=== PATIENT | female | born 1935 | race Caucasian/White ===

== ENCOUNTER 2017-05-11 16:02 | Inpatient (IN) | payer MEDICARE, BC ==
[2017-05-11] MEDS ORDERED: Haloperidol Lactate 5 mg/mL 1mL Vial IVP ONE (16:15)
[2017-05-11] MEDS ORDERED: Haloperidol Lactate 5 mg/mL 1mL Vial ONE (16:20)
--- NOTE | 2017-05-11 16:31 | ED Physician Chart ---
ED Chief Complaint/HPI - Patient Information Date Seen:: 05/11/17 Time Seen:: 16:15 Chief Complaint:: PSYCHOSIS History of Present Illness:: THIS IS AN 81 YO FEMALE SENT FROM THE NURSING SCHOOL FOR EVALUATION AND TREATMENT. SHE IS CHRONICALLY ILL WITH DEMENTIA, AGGRESSIVE AND CONFUSION. SHE ALSO HAS HYPERTENSION,GERD, NEUROPATHY. Allergies:: Allergies Allergy/AdvReac Type Severity Reaction Status Date / Time No Known Allergies Allergy Verified 05/11/17 16:07 Vitals:: Vital Signs - 8 hr 05/11/17 16:07 Temp 98.1 F HR 75 RR 16 BP 133/74 O2 Sat % 96 Historian:: Medical Records Review:: Nurse's Note Reviewed, Old Chart Reviewed, Transfer documents Reviewed ED Review of Systems - Review of Systems General/Constitutional: No fever, No chills, No weight loss, No weakness, No diaphoresis, No edema, No loss of appetite, Other (THIS PATIENT IS CONFUSED AND CANNOT GIVE A REVIEW A REVIEW OF SYSTEMS.) Skin: No skin lesions, No rash, No bruising Head: No headache, No light-headedness Eyes: No loss of vision, No pain, No diplopia ENT: No earache, No nasal drainage, No sore throat, No tinnitus Neck: No neck pain, No swelling, No thyromegaly, No stiffness, No mass noted Cardio Vascular: No chest pain, No palpitations, No PND, No orthopnea, No edema Pulmonary: No SOB, No cough, No sputum, No wheezing GI: No nausea, No vomiting, No diarrhea, No pain, No melena, No hematochezia, No constipation, No hematemesis G/U: No dysuria, No frequency, No hematuria Musculoskeletal: No bone or joint pain, No back pain, No muscle pain Endocrine: No polyuria, No polydipsia Psychiatric: No prior psych history, No depression, No anxiety, No suicidal ideation Hematopoietic: No bruising, No lymphadenopathy Allergic/Immuno: No urticaria, No angioedema Neurological: No syncope, No focal symptoms, No weakness, No paresthesia, No headache, No seizure, No dizziness, No confusion, No vertigo ED Past Medical History - Past Medical History Obtainable: Yes Past Medical History: HTN, DM, DVT/PE, PUD/GERD, ESRD, Arthritis, Dementia Family History: None Social History: Non Smoker, Alcohol, Illicit Drug Use, Care Facility Surgical History: None Psychiatricy History: Schizophrenia, Dementia Medication: Reviewed Family Medical History - Family Member Mother History Unknown: Yes Hx Family Congestive Heart Failure: No ED Physical Exam - Physical Examination General/Constitutional: Awake, Well-developed, well-nourished, Alert, No distress, GCS 15, Non-toxic appearing, Ambulatory Other Gen/Cons comments:: CONFUSED AND AGGRESSIVE Head: Atraumatic Eyes: Lids, conjuctiva normal, PERRL, EOMI Skin: Nl inspection, No rash, No skin lesions, No ecchymosis, Well hydrated, No lymphadenopathy ENMT: External ears, nose nl, Nasal exam nl, Lips, teeth, gums nl Neck: Nontender, Full ROM w/o pain, No JVD, No nuchal rigidity, No bruit, No mass, No stridor Respiratory: Nl effort/Exclusion, Clear to Auscultation, No Wheeze/Rhonchi/Rales Cardio Vascular: RRR, No murmur, gallop, rubs, NL S1 S2 GI: No tenderness/rebounding/guarding, No organomegaly, No hernia, Normal BS's, Nondistended, No mass/bruits, No McBurney tenderness : No CVA tenderness Extremities: No tenderness or effusion, Full ROM, normal strength in all extremities, No edema, Normal digits & nails Neuro/Psych: DTR's symmetric, Normal sensory exam, Normal motor strength, Normal gait, No focal deficits Other Neuro/Psych comments:: CONFUSED AND AGGRESSIVE Misc: Normal back, No paraspinal tenderness ED Labs/Radiology/EKG Results - Radiology Results Results: CHEST X-RAY= NAD - EKG Interpretations EKG Time:: 16:24 Rate & Rhythm: SINUS [place]: RIGHT AXIS ED Assessment - Assessment General Assessment: PSYCHOSIS ED Septic Shock - . Is Septic Shock (SBP<90, OR Lactate>4 mmol\L) present?: No - <6hrs of presentation: Vital Signs: Vital Signs - 8 hr 05/11/17 16:07 Temp 98.1 F HR 75 RR 16 BP 133/74 O2 Sat % 96 ED Reassessment (Disposition) - Reassessment Reassessment Condition:: Improved - Diagnosis Diagnosis:: PSYCHOSIS ANEMIA - Patient Disposition Discharge/Transfer:: Acute Care w/in this hosp Admitting Medical Physician:: Gregorio Starks Admitting Psych Physician:: Berta Pollock Condition at Disposition:: Improved ED Discharge Plan - Patient Disposition Admit/Discharge/Transfer: Acute Care w/in this hosp Condition at Disposition: Improved Instructions: Psychosis
[2017-05-11 16:34] LABS: HEMOGLOBIN 11.7 gm/dL (12-16); MEAN CORPUSCULAR HEMOGLOBIN 31.2 pg (27.0-31.0); MEAN CORPUSCULAR HGB CONC 34.3 pg (28.0-36.0); MEAN PLATELET VOLUME 7.8 fl; PLATELET COUNT 178 Th/cmm (150-400); RED BLOOD COUNT 3.74 Mil/cmm (3.80-5.20); RED CELL DISTRIBUTION WIDTH 13.9 % (11.5-20.0); WHITE BLOOD COUNT 8.2 Th/cmm (4.8-10.8)
[2017-05-11 16:46] LABS: INR 0.93 (0.5-1.4); PROTHROMBIN TIME (TEST) 9.7 SECONDS (9.5-11.5)
[2017-05-11 16:50] LABS: ALB/GLOB RATIO 1.2 (1.0-1.8); ALKALINE PHOSPHATASE 72 U/L (34-104); ANION GAP 13.5 (7.0-16.0); BILIRUBIN,TOTAL 0.5 mg/dL (0.3-1.0); BUN - UREA NITROGEN 28 mg/dL (7-25); BUN/CREATININE RATIO 25.5; CALCIUM SERUM 9.9 mg/dL (8.6-10.3); CARBON DIOXIDE 22.9 mEq/L (21.0-31.0); CHLORIDE 106 mEq/L (98-107); CREATININE - SERUM 1.1 mg/dL (0.6-1.2); GLUCOSE 102 mg/dL (70-105); POTASSIUM SERUM 4.4 mEq/L (3.5-5.1); SGOT 21 U/L (13-39); SGPT/ALT 13 U/L (7-52); SODIUM SERUM 138 mEq/L (136-145)
[2017-05-11 16:51] LABS: CHOLESTEROL 216 mg/dL (<200); TRIGLYCERIDES 85 mg/dL (<150)
[2017-05-11 17:02] LABS: BASOPHIL 1 % (0-3); NEUTROPHILS 47 % (40-80); PLATELET ESTIMATE ADEQUATE (NORMAL); TOTAL CELLS COUNTED 100
[2017-05-11 21:28] VITALS: BP 136/74
[2017-05-11] MEDS ORDERED: Magnesium Hydroxide (MOM) 30 mL UDC PO PRN (21:30)
--- NOTE | 2017-05-12 10:14 | Diagnostic Imaging Report ---
Portable chest x-ray Time: 1631 History: Shortness of breath Allowing for portable technique the heart size is normal. No focal pulmonary parenchymal processes. No hilar or mediastinal abnormalities. Impression: No acute abnormalities.
--- NOTE | 2017-05-12 10:30 | Psychosocial Evaluation ---
DATE OF SERVICE: 05/12/2017 JUSTIFICATION FOR HOSPITALIZATION: The patient is here because of aggressive behaviors, confusion. CHIEF COMPLAINT: Aggression. HISTORY OF PRESENT ILLNESS: An 81-year-old female noted to be demented, confused, aggressive, impulsive, unpredictable, unable to be cared for at the facility. On pizw-ai-shed, the patient is sleeping, refusing to answer any questions, difficult to arouse, but she is arousable. PAST PSYCHIATRIC HISTORY: Dementia. FAMILY HISTORY: Unknown. SOCIAL HISTORY: The patient is coming from a prison, I am not able to elicit any further information as the patient is not talking to me. DRUG HISTORY: Nonsmoker, no alcohol, no illicit drug use. MEDICATIONS: Noted. MENTAL STATUS EXAMINATION: Stated age, little eye contact, confused, disoriented. Unclear SI or HI, unclear psychotic symptoms, impulsive, unpredictable, poor insight, poor judgment, poor impulse control. PROVISIONAL DIAGNOSES: Dementia with behavioral disturbances; psychosis, unspecified; anxiety, unspecified. MEDICAL: As noted. Please see full H and P. ESTIMATED LENGTH OF STAY: 5-7 days. ASSESSMENT: The patient requiring inpatient hospitalization, combative, confused, unable to be cared for at a lower level of care. PLAN: We will adjust medications. TREATMENT PLAN: Includes group as well as milieu therapy. CONDITIONS FOR DISCHARGE: Improved mood, improved affect, better control of any combative symptoms. JOB# [id number]
[2017-05-12] MEDS ORDERED: Non-Formulary Item 1 EA (Rivaroxaban [Xarelto] 20 MG) PO SCH (11:15)
[2017-05-12] MEDS ORDERED: AMLODIPINE BESYLATE 2.5 MG PO SCH (11:15)
--- NOTE | 2017-05-12 13:06 | History & Physical ---
ADMIT DATE: 05/11/2017 CHIEF COMPLAINT: Agitation. HISTORY OF PRESENT ILLNESS: This is an 81-year-old female with past medical history significant for dementia, presents after being agitated at the custodial. The patient was brought to the Emergency Room and admitted for further psychiatric evaluation to Geropsych Unit. The patient is seen in a chair. She is awake and alert, confused and confabulating, poor historian. Denies any medical complaints. PAST MEDICAL HISTORY: The patient has history of dementia, hypertension, gastroesophageal reflux disorder, neuropathy, and DVT. MEDICATIONS: See reconciliation. ALLERGIES: No known drug allergies. SOCIAL HISTORY: Denies tobacco, alcohol or illicit drug use. FAMILY HISTORY: Noncontributory. REVIEW OF SYSTEMS: IMMUNOLOGIC: No recurrent infection. CARDIOVASCULAR: The patient has hypertension. No known heart disease. GASTROINTESTINAL: No nausea, vomiting or diarrhea. ENDOCRINE: No diabetes or thyroid disorder. NEUROLOGIC: No seizure or stroke. HEMATOLOGIC: No bleeding or clotting disorder. The patient has history of DVT for which she takes anticoagulation. PHYSICAL EXAMINATION: GENERAL: The patient is awake and alert, in no acute distress. VITAL SIGNS: Temperature 97.1, pulse 60, respirations 18, blood pressure 130/66. HEENT: Pupils are equally and round. Anicteric sclerae. NECK: Supple, no JVD, mass or bruit. LUNGS: Clear to auscultation. HEART: S1, S2 regular rate and rhythm. ABDOMEN: Soft and nontender, positive bowel sounds. EXTREMITIES: No clubbing, cyanosis or edema. BACK: The patient has some ecchymosis on the antecubital area of right arm and hand possibly from a venipuncture. NEUROLOGIC: The patient moves all extremities equally, able to stand and ambulate. LABORATORY DATA: WBC is 8.2, hemoglobin is 11.7. Chemistry was unremarkable except for BUN of 28. IMPRESSION: 1. Dementia. 2. Hypertension. 3. Gastroesophageal reflux disorder. 4. Deep vein thrombosis. 5. Peripheral neuropathy. PLAN: Admit to the Geropsych Unit. The patient is to continue her usual medications and will be monitored while in the facility. The patient is medically cleared to participate in activities. JOB# [id number]
[2017-05-13] MEDS ORDERED: Non-Formulary Item 1 EA (Saccharomyces Boulardii [Florastor] 250 MG) PO SCH (09:00)
--- NOTE | 2017-05-13 19:03 | Progress Notes ---
DATE: 05/13/2017 SUBJECTIVE: The patient seen, chart reviewed, discussed with staff. The patient is currently in the hospital with aggressive behaviors, confusion. On face to face, the patient is confused, making odd statements, stating that she is "looking for the captain." States that she is coming from another facility, is asking nonsensical questions, making nonsensical statements, wandering behaviors, calm at this time, no side effects noted. ASSESSMENT: The patient remains symptomatic, confused, wandering, impulsive, unpredictable. She is compliant with treatment, however. PLAN: We will continue to monitor, continue Aricept at current dose. JOB# [id number]
--- NOTE | 2017-05-13 19:52 | General Progress Note ---
Subjective - Review of Systems Service Date: 05/13/17 Subjective: resting comfortably no distress Objective - Results Result Diagrams: 05/11/17 16:25 05/11/17 16:25 Recent Labs: Laboratory Last Values WBC 8.2 Th/cmm (4.8-10.8) 05/11/17 16:25 RBC 3.74 Mil/cmm (3.80-5.20) L 05/11/17 16:25 Hgb 11.7 gm/dL (12-16) L 05/11/17 16:25 Hct 34.0 % (41.0-60) L 05/11/17 16:25 MCV 91.0 fl (81-100) 05/11/17 16:25 MCH 31.2 pg (27.0-31.0) H 05/11/17 16:25 MCHC Differential 34.3 pg (28.0-36.0) 05/11/17 16:25 RDW 13.9 % (11.5-20.0) 05/11/17 16:25 Plt Count 178 Th/cmm (150-400) 05/11/17 16:25 MPV 7.8 fl 05/11/17 16:25 Neutrophils (Manual) 47 % (40-80) 05/11/17 16:25 Lymphocytes 41 % (20-50) 05/11/17 16:25 Monocytes 11 % (2-10) H 05/11/17 16:25 Basophils 1 % (0-3) 05/11/17 16:25 Platelet Estimate ADEQUATE (NORMAL) 05/11/17 16:25 PT 9.7 SECONDS (9.5-11.5) 05/11/17 16:25 INR 0.93 (0.5-1.4) 05/11/17 16:25 PTT (Actin FS) 25.4 SECONDS (26.0-38.0) L 05/11/17 16:25 Sodium 138 mEq/L (136-145) 05/11/17 16:25 Potassium 4.4 mEq/L (3.5-5.1) 05/11/17 16:25 Chloride 106 mEq/L (98-107) 05/11/17 16:25 Carbon Dioxide 22.9 mEq/L (21.0-31.0) 05/11/17 16:25 Anion Gap 13.5 (7.0-16.0) 05/11/17 16:25 BUN 28 mg/dL (7-25) H 05/11/17 16:25 Creatinine 1.1 mg/dL (0.6-1.2) 05/11/17 16:25 Est GFR ( Amer) TNP 05/11/17 16:25 Est GFR (Non-Af Amer) TNP 05/11/17 16:25 BUN/Creatinine Ratio 25.5 05/11/17 16:25 Glucose 102 mg/dL (70-105) 05/11/17 16:25 Calcium 9.9 mg/dL (8.6-10.3) 05/11/17 16:25 Total Bilirubin 0.5 mg/dL (0.3-1.0) 05/11/17 16:25 AST 21 U/L (13-39) 05/11/17 16:25 ALT 13 U/L (7-52) 05/11/17 16:25 Alkaline Phosphatase 72 U/L (34-104) 05/11/17 16:25 Troponin I 0.02 ng/mL (0.01-0.05) 05/11/17 16:25 B-Natriuretic Peptide 68.8 pg/mL (5.0-100.0) 05/11/17 16:25 Total Protein 8.2 gm/dL (6.0-8.3) 05/11/17 16:25 Albumin 4.5 gm/dL (3.7-5.3) 05/11/17 16:25 Globulin 3.7 gm/dL 05/11/17 16:25 Albumin/Globulin Ratio 1.2 (1.0-1.8) 05/11/17 16:25 Triglycerides 85 mg/dL (<150) 05/11/17 16:25 Cholesterol 216 mg/dL (<200) H 05/11/17 16:25 LDL Cholesterol Direct 139 mg/dL (75-193) 05/11/17 16:25 HDL Cholesterol 71 mg/dL (23-92) 05/11/17 16:25 TSH 2.96 uIU/ml (0.34-5.60) 05/11/17 16:25 RPR NONREACTIVE (NONREACTIVE) 05/11/17 16:25 - Physical Exam Vitals and I&O: Vital Signs Temp 97.7 F 05/13/17 16:21 Pulse 59 05/13/17 16:21 Resp 20 05/13/17 16:21 BP 105/50 05/13/17 16:21 Pulse Ox 96 05/13/17 16:21 Intake & Output 05/13/17 05/13/17 05/14/17 06:59 18:59 06:59 Intake Total 650 Balance 650 Intake: Oral 650 Other: # Voids 4 # Bowel Movements 3 Active Medications: Current Medications Acetaminophen (Tylenol) 650 mg PO Q6H PRN PRN Reason: Mild Pain/Headache/T above 101 Stop: 07/10/17 21:29 Last Admin: 05/13/17 15:22 Dose: 650 mg Amlodipine Besylate (Norvasc) 2.5 mg PO DAILY MAYCO Stop: 07/12/17 08:59 Last Admin: 05/13/17 09:17 Dose: 2.5 mg Donepezil HCl (Aricept) 5 mg PO HS MAYCO Stop: 07/11/17 20:59 Last Admin: 05/12/17 20:53 Dose: 5 mg Gabapentin (Neurontin) 100 mg PO HS MAYCO Stop: 07/11/17 20:59 Last Admin: 05/12/17 20:53 Dose: 100 mg Lorazepam (Ativan) 1 mg PO Q6H PRN; Protocol PRN Reason: Anxiety/Agitation Stop: 07/10/17 21:29 Magnesium Hydroxide (Milk Of Magnesia) 30 ml PO HS PRN PRN Reason: Constipation Stop: 07/10/17 21:29 Magnesium Oxide (Mag-Oxide) 400 mg PO BID MAYCO Stop: 07/11/17 16:59 Last Admin: 05/13/17 16:35 Dose: 400 mg Rivaroxaban (Xarelto) 20 mg PO DAILY MAYCO Stop: 07/12/17 08:59 Last Admin: 05/13/17 09:17 Dose: 20 mg Zolpidem Tartrate (Ambien) 5 mg PO HS PRN PRN Reason: Insomnia Stop: 07/10/17 21:29 Last Admin: 05/12/17 23:41 Dose: 5 mg General: Alert, Oriented x3 HEENT: Atraumatic, PERRLA, EOMI Neck: Supple, JVD Cardiovascular: Regular rate, Normal S1, Normal S2 Lungs: Clear to auscultation Abdomen: Bowel sounds, Soft Neurological: Normal gait Psych/Mental Status: Mood NL Assessment/Plan - Assessment Assessment: schizophrenia dementia htn gerd - Plan Plan: cont current treatment
--- NOTE | 2017-05-14 09:05 | Progress Notes ---
DATE: 05/14/2017 SUBJECTIVE: Chart reviewed and the patient interviewed. Also discussed the patient's condition with the staff and reviewed records and labs. The patient continued to be pleasantly confused and delusional. 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 The patient also is still easily agitated and easily irritable. She also is still restless and she still needs lots of redirections. During interview, the patient is pleasantly confused. She also still seems to be actively responding to stimuli. ASSESSMENT: The patient is still psychotic. TREATMENT PLAN: We will continue monitoring her behavior and her condition closely. Also, we will continue working on her confusion and her psychosis. Also, we will add Abilify in a dose of 5 mg everyday and we will continue to monitor her behavior and her condition closely. [facility]# [id number]
[2017-05-14 16:35] LABS: URINE BILIRUBIN NEGATIVE (NEGATIVE); URINE BLOOD TRACE (NEGATIVE); URINE GLUCOSE (UA) NEGATIVE (NEGATIVE); URINE KETONE NEGATIVE (NEGATIVE); URINE PROTEIN NEGATIVE (NEGATIVE); URINE UROBILINOGEN 0.2 E.U./dL (0.2 - 1.0)
[2017-05-14 16:39] LABS: URINE COLOR STRAW
[2017-05-14 16:40] LABS: URINE BACTERIA NONE SEEN /hpf (NONE SEEN); URINE EPITHELIAL CELLS NONE SEEN /lpf (FEW); URINE RBC 0-2 /hpf (0-5); URINE WBC 0-2 /hpf (0-5)
--- NOTE | 2017-05-14 19:43 | Internal Medicine Prog Note ---
Internal Medicine Subjective - Subjective Service Date: 05/14/17 Patient seen and examined:: with staff (SHE HAS PAIN AT BOTH UPPER AND LOWER EXTREMETES.) Patient is:: awake, robyn chair, talking Per staff patient has:: no adverse event Internal Medicine Objective - Results Result Diagrams: 05/11/17 16:25 05/11/17 16:25 Recent Labs: Laboratory Last Values WBC 8.2 Th/cmm (4.8-10.8) 05/11/17 16:25 RBC 3.74 Mil/cmm (3.80-5.20) L 05/11/17 16:25 Hgb 11.7 gm/dL (12-16) L 05/11/17 16:25 Hct 34.0 % (41.0-60) L 05/11/17 16:25 MCV 91.0 fl (81-100) 05/11/17 16:25 MCH 31.2 pg (27.0-31.0) H 05/11/17 16:25 MCHC Differential 34.3 pg (28.0-36.0) 05/11/17 16:25 RDW 13.9 % (11.5-20.0) 05/11/17 16:25 Plt Count 178 Th/cmm (150-400) 05/11/17 16:25 MPV 7.8 fl 05/11/17 16:25 Neutrophils (Manual) 47 % (40-80) 05/11/17 16:25 Lymphocytes 41 % (20-50) 05/11/17 16:25 Monocytes 11 % (2-10) H 05/11/17 16:25 Basophils 1 % (0-3) 05/11/17 16:25 Platelet Estimate ADEQUATE (NORMAL) 05/11/17 16:25 PT 9.7 SECONDS (9.5-11.5) 05/11/17 16:25 INR 0.93 (0.5-1.4) 05/11/17 16:25 PTT (Actin FS) 25.4 SECONDS (26.0-38.0) L 05/11/17 16:25 Sodium 138 mEq/L (136-145) 05/11/17 16:25 Potassium 4.4 mEq/L (3.5-5.1) 05/11/17 16:25 Chloride 106 mEq/L (98-107) 05/11/17 16:25 Carbon Dioxide 22.9 mEq/L (21.0-31.0) 05/11/17 16:25 Anion Gap 13.5 (7.0-16.0) 05/11/17 16:25 BUN 28 mg/dL (7-25) H 05/11/17 16:25 Creatinine 1.1 mg/dL (0.6-1.2) 05/11/17 16:25 Est GFR ( Amer) TNP 05/11/17 16:25 Est GFR (Non-Af Amer) TNP 05/11/17 16:25 BUN/Creatinine Ratio 25.5 05/11/17 16:25 Glucose 102 mg/dL (70-105) 05/11/17 16:25 Calcium 9.9 mg/dL (8.6-10.3) 05/11/17 16:25 Total Bilirubin 0.5 mg/dL (0.3-1.0) 05/11/17 16:25 AST 21 U/L (13-39) 05/11/17 16:25 ALT 13 U/L (7-52) 05/11/17 16:25 Alkaline Phosphatase 72 U/L (34-104) 05/11/17 16:25 Troponin I 0.02 ng/mL (0.01-0.05) 05/11/17 16:25 B-Natriuretic Peptide 68.8 pg/mL (5.0-100.0) 05/11/17 16:25 Total Protein 8.2 gm/dL (6.0-8.3) 05/11/17 16:25 Albumin 4.5 gm/dL (3.7-5.3) 05/11/17 16:25 Globulin 3.7 gm/dL 05/11/17 16:25 Albumin/Globulin Ratio 1.2 (1.0-1.8) 05/11/17 16:25 Triglycerides 85 mg/dL (<150) 05/11/17 16:25 Cholesterol 216 mg/dL (<200) H 05/11/17 16:25 LDL Cholesterol Direct 139 mg/dL (75-193) 05/11/17 16:25 HDL Cholesterol 71 mg/dL (23-92) 05/11/17 16:25 TSH 2.96 uIU/ml (0.34-5.60) 05/11/17 16:25 Urine Source CLEAN C 05/14/17 16:10 Urine Color STRAW 05/14/17 16:10 Urine Clarity CLEAR (CLEAR) 05/14/17 16:10 Urine pH 6.0 (4.6 - 8.0) 05/14/17 16:10 Ur Specific [place] <= 1.005 (1.005-1.030) 05/14/17 16:10 Urine Protein NEGATIVE mg/dL (NEGATIVE) 05/14/17 16:10 Urine Glucose (UA) NEGATIVE mg/dL (NEGATIVE) 05/14/17 16:10 Urine Ketones NEGATIVE mg/dL (NEGATIVE) 05/14/17 16:10 Urine Blood TRACE (NEGATIVE) 05/14/17 16:10 Urine Nitrate NEGATIVE (NEGATIVE) 05/14/17 16:10 Urine Bilirubin NEGATIVE (NEGATIVE) 05/14/17 16:10 Urine Urobilinogen 0.2 E.U./dL (0.2 - 1.0) 05/14/17 16:10 Ur Leukocyte Esterase NEGATIVE (NEGATIVE) 05/14/17 16:10 Urine RBC 0-2 /hpf (0-5) 05/14/17 16:10 Urine WBC 0-2 /hpf (0-5) 05/14/17 16:10 Ur Epithelial Cells NONE SEEN /lpf (FEW) 05/14/17 16:10 Urine Bacteria NONE SEEN /hpf (NONE SEEN) 05/14/17 16:10 RPR NONREACTIVE (NONREACTIVE) 05/11/17 16:25 - Physical Exam Vitals and I&O: Vital Signs Temp 98.1 F 05/14/17 15:34 Pulse 73 05/14/17 15:34 Resp 20 05/14/17 15:34 BP 130/70 05/14/17 15:34 Pulse Ox 98 05/14/17 15:34 Intake & Output 05/14/17 05/14/17 05/15/17 06:59 18:59 06:59 Intake Total 360 600 Balance 360 600 Intake: Oral 360 600 Other: # Voids 3 6 # Bowel Movements 0 2 Active Medications: Current Medications Acetaminophen (Tylenol) 650 mg PO Q6H PRN PRN Reason: Mild Pain/Headache/T above 101 Stop: 07/10/17 21:29 Last Admin: 05/13/17 15:22 Dose: 650 mg Amlodipine Besylate (Norvasc) 2.5 mg PO DAILY MAYCO Stop: 07/12/17 08:59 Last Admin: 05/14/17 08:53 Dose: Not Given Aripiprazole (Abilify) 5 mg PO DAILY MAYCO PRN Reason: Protocol Stop: 07/13/17 10:29 Last Admin: 05/14/17 17:34 Dose: Not Given Donepezil HCl (Aricept) 5 mg PO HS MAYCO Stop: 07/11/17 20:59 Last Admin: 05/13/17 20:53 Dose: 5 mg Gabapentin (Neurontin) 100 mg PO HS MAYCO Stop: 07/11/17 20:59 Last Admin: 05/13/17 20:53 Dose: 100 mg Lorazepam (Ativan) 1 mg PO Q6H PRN; Protocol PRN Reason: Anxiety/Agitation Stop: 07/10/17 21:29 Magnesium Hydroxide (Milk Of Magnesia) 30 ml PO HS PRN PRN Reason: Constipation Stop: 07/10/17 21:29 Magnesium Oxide (Mag-Oxide) 400 mg PO BID MAYCO Stop: 07/11/17 16:59 Last Admin: 05/14/17 17:34 Dose: 400 mg Rivaroxaban (Xarelto) 20 mg PO DAILY MAYCO Stop: 07/12/17 08:59 Last Admin: 05/14/17 08:53 Dose: 20 mg Zolpidem Tartrate (Ambien) 5 mg PO HS PRN PRN Reason: Insomnia Stop: 07/10/17 21:29 Last Admin: 05/13/17 23:33 Dose: 5 mg General: demented HEENT: NC/AT, PERRLA, EOMI, anicteric sclerae, throat clear Neck: Supple, No JVD, No thyromegaly, +2 carotid pulse wo bruit, No LAD Lungs: CTAB Cardiovascular: RRR, Normal S1, Normal S2, without murmur Abdomen: soft, non-tender, tender, thin Extremities: clear Neurological: no change Internal Medicine Assmt/Plan - Assessment Assessment: 1.HTN 2.DVT OF LOWER EXTRE. 3.PERIPHERAL NEUROPATHY OF LOWER EXTRE. 4.DEMENTIA. - Plan Plan: CONTINUE ON CURRENT MEDICATION AND DIET.
--- NOTE | 2017-05-15 12:12 | Progress Notes ---
DATE: 05/15/2017 SUBJECTIVE: Chart reviewed and the patient interviewed. Also discussed the patient's condition with the staff and reviewed records and labs. The patient is complaining of inability to control her urine and she has been incontinent of urine. The patient also seems to be slightly calmer and cooperative, but she has guilty feeling about "my friend in an earthquake." She is slightly delusional and paranoid, talking about a friend that last week in an earthquake in [place], and she said that she was in a swimming pool swimming, and the patient kept rambling about that issue. She also still slightly seems to be preoccupied at times. She also is restless at times and hypertalkative and slightly manicky. Otherwise, the patient is compliant with taking her medications. ASSESSMENT: The patient is still psychotic. TREATMENT PLAN: We will continue monitoring her behavior and her condition closely. Also, continue to work on her delusions and her paranoia. 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 JOB# [id number]
--- NOTE | 2017-05-15 19:32 | Internal Medicine Prog Note ---
Internal Medicine Subjective - Subjective Service Date: 05/15/17 Patient seen and examined:: without staff Patient is:: awake, robyn chair, talking Per staff patient has:: no adverse event Internal Medicine Objective - Results Result Diagrams: 05/11/17 16:25 05/11/17 16:25 Recent Labs: Laboratory Last Values WBC 8.2 Th/cmm (4.8-10.8) 05/11/17 16:25 RBC 3.74 Mil/cmm (3.80-5.20) L 05/11/17 16:25 Hgb 11.7 gm/dL (12-16) L 05/11/17 16:25 Hct 34.0 % (41.0-60) L 05/11/17 16:25 MCV 91.0 fl (81-100) 05/11/17 16:25 MCH 31.2 pg (27.0-31.0) H 05/11/17 16:25 MCHC Differential 34.3 pg (28.0-36.0) 05/11/17 16:25 RDW 13.9 % (11.5-20.0) 05/11/17 16:25 Plt Count 178 Th/cmm (150-400) 05/11/17 16:25 MPV 7.8 fl 05/11/17 16:25 Neutrophils (Manual) 47 % (40-80) 05/11/17 16:25 Lymphocytes 41 % (20-50) 05/11/17 16:25 Monocytes 11 % (2-10) H 05/11/17 16:25 Basophils 1 % (0-3) 05/11/17 16:25 Platelet Estimate ADEQUATE (NORMAL) 05/11/17 16:25 PT 9.7 SECONDS (9.5-11.5) 05/11/17 16:25 INR 0.93 (0.5-1.4) 05/11/17 16:25 PTT (Actin FS) 25.4 SECONDS (26.0-38.0) L 05/11/17 16:25 Sodium 138 mEq/L (136-145) 05/11/17 16:25 Potassium 4.4 mEq/L (3.5-5.1) 05/11/17 16:25 Chloride 106 mEq/L (98-107) 05/11/17 16:25 Carbon Dioxide 22.9 mEq/L (21.0-31.0) 05/11/17 16:25 Anion Gap 13.5 (7.0-16.0) 05/11/17 16:25 BUN 28 mg/dL (7-25) H 05/11/17 16:25 Creatinine 1.1 mg/dL (0.6-1.2) 05/11/17 16:25 Est GFR ( Amer) TNP 05/11/17 16:25 Est GFR (Non-Af Amer) TNP 05/11/17 16:25 BUN/Creatinine Ratio 25.5 05/11/17 16:25 Glucose 102 mg/dL (70-105) 05/11/17 16:25 Calcium 9.9 mg/dL (8.6-10.3) 05/11/17 16:25 Total Bilirubin 0.5 mg/dL (0.3-1.0) 05/11/17 16:25 AST 21 U/L (13-39) 05/11/17 16:25 ALT 13 U/L (7-52) 05/11/17 16:25 Alkaline Phosphatase 72 U/L (34-104) 05/11/17 16:25 Troponin I 0.02 ng/mL (0.01-0.05) 05/11/17 16:25 B-Natriuretic Peptide 68.8 pg/mL (5.0-100.0) 05/11/17 16:25 Total Protein 8.2 gm/dL (6.0-8.3) 05/11/17 16:25 Albumin 4.5 gm/dL (3.7-5.3) 05/11/17 16:25 Globulin 3.7 gm/dL 05/11/17 16:25 Albumin/Globulin Ratio 1.2 (1.0-1.8) 05/11/17 16:25 Triglycerides 85 mg/dL (<150) 05/11/17 16:25 Cholesterol 216 mg/dL (<200) H 05/11/17 16:25 LDL Cholesterol Direct 139 mg/dL (75-193) 05/11/17 16:25 HDL Cholesterol 71 mg/dL (23-92) 05/11/17 16:25 TSH 2.96 uIU/ml (0.34-5.60) 05/11/17 16:25 Urine Source CLEAN C 05/14/17 16:10 Urine Color STRAW 05/14/17 16:10 Urine Clarity CLEAR (CLEAR) 05/14/17 16:10 Urine pH 6.0 (4.6 - 8.0) 05/14/17 16:10 Ur Specific [place] <= 1.005 (1.005-1.030) 05/14/17 16:10 Urine Protein NEGATIVE mg/dL (NEGATIVE) 05/14/17 16:10 Urine Glucose (UA) NEGATIVE mg/dL (NEGATIVE) 05/14/17 16:10 Urine Ketones NEGATIVE mg/dL (NEGATIVE) 05/14/17 16:10 Urine Blood TRACE (NEGATIVE) 05/14/17 16:10 Urine Nitrate NEGATIVE (NEGATIVE) 05/14/17 16:10 Urine Bilirubin NEGATIVE (NEGATIVE) 05/14/17 16:10 Urine Urobilinogen 0.2 E.U./dL (0.2 - 1.0) 05/14/17 16:10 Ur Leukocyte Esterase NEGATIVE (NEGATIVE) 05/14/17 16:10 Urine RBC 0-2 /hpf (0-5) 05/14/17 16:10 Urine WBC 0-2 /hpf (0-5) 05/14/17 16:10 Ur Epithelial Cells NONE SEEN /lpf (FEW) 05/14/17 16:10 Urine Bacteria NONE SEEN /hpf (NONE SEEN) 05/14/17 16:10 RPR NONREACTIVE (NONREACTIVE) 05/11/17 16:25 - Physical Exam Vitals and I&O: Vital Signs Temp 97.2 F 05/15/17 14:00 Pulse 68 05/15/17 14:00 Resp 20 05/15/17 14:00 BP 132/66 05/15/17 14:00 Pulse Ox 95 05/15/17 14:00 Intake & Output 05/15/17 05/15/17 05/16/17 06:59 18:59 06:59 Intake Total 900 Balance 900 Weight (lbs) 73.845 kg Intake: Oral 900 Other: # Voids 4 # Bowel Movements 1 Active Medications: Current Medications Acetaminophen (Tylenol) 650 mg PO Q6H PRN PRN Reason: Mild Pain/Headache/T above 101 Stop: 07/10/17 21:29 Last Admin: 05/13/17 15:22 Dose: 650 mg Amlodipine Besylate (Norvasc) 2.5 mg PO DAILY [facility] Stop: 07/12/17 08:59 Last Admin: 05/15/17 08:45 Dose: 2.5 mg Aripiprazole (Abilify) 5 mg PO DAILY [facility] PRN Reason: Protocol Stop: 07/13/17 10:29 Last Admin: 05/15/17 08:49 Dose: 5 mg Donepezil HCl (Aricept) 5 mg PO HS [facility] Stop: 07/11/17 20:59 Last Admin: 05/14/17 22:05 Dose: 5 mg Gabapentin (Neurontin) 100 mg PO HS [facility] Stop: 07/11/17 20:59 Last Admin: 05/14/17 22:05 Dose: 100 mg Lactobacillus Rhamnosus (Culturelle) 1 each PO DAILY COUNT [facility]CLUDES [facility] Stop: 07/12/17 08:59 Lorazepam (Ativan) 1 mg PO Q6H PRN; Protocol PRN Reason: Anxiety/Agitation Stop: 07/10/17 21:29 Magnesium Hydroxide (Milk Of Magnesia) 30 ml PO HS PRN PRN Reason: Constipation Stop: 07/10/17 21:29 Magnesium Oxide (Mag-Oxide) 400 mg PO BID [facility] Stop: 07/11/17 16:59 Last Admin: 05/15/17 16:59 Dose: 400 mg Rivaroxaban (Xarelto) 20 mg PO DAILY COUNT [facility]CLUD[facility] Stop: 07/12/17 08:59 Last Admin: 05/15/17 08:45 Dose: 20 mg Zolpidem Tartrate (Ambien) 5 mg PO HS PRN PRN Reason: Insomnia Stop: 07/10/17 21:29 Last Admin: 05/14/17 22:46 Dose: 5 mg General: demented HEENT: NC/AT, PERRLA, EOMI, anicteric sclerae, throat clear Neck: Supple, No JVD, No thyromegaly, +2 carotid pulse wo bruit, No LAD Lungs: CTAB Cardiovascular: RRR, Normal S1, Normal S2, without murmur Abdomen: soft, non-tender, tender, thin Extremities: clear Neurological: no change Internal Medicine Assmt/Plan - Assessment Assessment: 1.HTN 2.DVT OF LOWER EXTRE. 3.PERIPHERAL NEUROPATHY OF LOWER EXTRE. 4.DEMENTIA. - Plan Plan: CONTINUE ON CURRENT MEDICATION AND DIET. Nutritional Asmnt/Malnutr-PDOC - Dietary Evaluation Malnutrition Findings (Please click <Entered> for more info): Nutritional Asmnt/Malnutrition Start: 05/15/17 17: 50 Text: Status: Complete Freq: Document 05/15/17 17:50 MYRANDA (Rec: 05/15/17 18:08 [email or web address]) Nutritional Asmnt/Malnutrition Patient General Information Nutritional Screening Moderate Risk Screening Diagnosis Dementia with behavioral disturbances, anxiety Pertinent Medical Hx/Surgical Hx Dementia, HTN, GERD, neuropathy, DVT Subjective Information 81 year old female from SNF. No known allergies on EMR, pt report allergies to shellfish. Pt was very talkaive, goes off topic, slight forgetfulness noted, however able to provide basic nutrition hx. Pt confirmed with specification writer allergies to shellfish only, hx of allergic reaction rushed to hospital and receievd a shot. Pt stated no allergies to anything else , likes salmon, tuna... etc. FNS notified and food preferences noted. No severe muscle fat wasting. No difficulties chewing/ swallowing. Pt report UBW 190lb many years ago. Pt report "wonderful appetite" and food has been "excellent." Pt also appeared health concious, requested for additional Mrs. Baires packets and was able to explain purpose/benefit. Avg PO intake 100% of meals since adm, meeting nutritinoal needs. Current Diet Order/ Nutrition Support Regular, SANJAY Pertinent Medications LASHAY Beltran, Mag-Oxide Pertinent Labs Reviewed. Nutritional Hx/Data Height 1.68 m Height (Calculated Centimeters) 167.6 Current Weight (lbs) 73.845 kg Weight (Calculated Kilograms) 73.8 Weight (Calculated Grams) 61737.8 [place] Body Weight 130 Recent Weight Change No Weight Status Overweight GI Symptoms Food Allergies Yes Cultural/Ethnic/Buddhism Belief Allergies to shellfish. Pt with preference for extra Mrs. Baires packets, all other fish, tea, hot cocoa, apple juice. Dislikes coffee, mashed potato with gravy. Usual diet at home [place]: regular, SANJAY Skin Integrity/Comment: Perico Herbert. Bruises, discolor extremities. Current %PO Good (75-100%) Estimated Nutritional Goals BEE in Kcals: Using Current wt Calories/Kcals/Kg CBW 162.8lb/74kg Kcals Calculated 1850-2220kcal (25-30kcal/kg) Protein: Using Current wt Protein Calculated 74g (1g/kg) Fluid: ml 1850-2220ml (1ml/kcal) Nutritional Problem 1. Problem Problem No nutritional problem at this time. Intervention/Recommendation Comments 1. Continue with current diet order. Avg PO intake is adequate. Pt's food preferences noted, FNS notified. 2. Pt report food allergies to shellfish only, FNS notified, documented under diet order. Expected Outcomes/Goals Expected Outcomes/Goals 1. PO intake continue to meet at least 75% of estimated nutritinoal needs.
[2017-05-16] MEDS: Lactobacillus Rhamnosus 10 Billion CFU Capsule PO SCH (08:28)
--- NOTE | 2017-05-16 20:27 | Internal Medicine Prog Note ---
Internal Medicine Subjective - Subjective Service Date: 05/16/17 Patient seen and examined:: without staff Patient is:: awake, robyn chair, talking Per staff patient has:: no adverse event Internal Medicine Objective - Results Result Diagrams: 05/11/17 16:25 05/11/17 16:25 Recent Labs: Laboratory Last Values WBC 8.2 Th/cmm (4.8-10.8) 05/11/17 16:25 RBC 3.74 Mil/cmm (3.80-5.20) L 05/11/17 16:25 Hgb 11.7 gm/dL (12-16) L 05/11/17 16:25 Hct 34.0 % (41.0-60) L 05/11/17 16:25 MCV 91.0 fl (81-100) 05/11/17 16:25 MCH 31.2 pg (27.0-31.0) H 05/11/17 16:25 MCHC Differential 34.3 pg (28.0-36.0) 05/11/17 16:25 RDW 13.9 % (11.5-20.0) 05/11/17 16:25 Plt Count 178 Th/cmm (150-400) 05/11/17 16:25 MPV 7.8 fl 05/11/17 16:25 Neutrophils (Manual) 47 % (40-80) 05/11/17 16:25 Lymphocytes 41 % (20-50) 05/11/17 16:25 Monocytes 11 % (2-10) H 05/11/17 16:25 Basophils 1 % (0-3) 05/11/17 16:25 Platelet Estimate ADEQUATE (NORMAL) 05/11/17 16:25 PT 9.7 SECONDS (9.5-11.5) 05/11/17 16:25 INR 0.93 (0.5-1.4) 05/11/17 16:25 PTT (Actin FS) 25.4 SECONDS (26.0-38.0) L 05/11/17 16:25 Sodium 138 mEq/L (136-145) 05/11/17 16:25 Potassium 4.4 mEq/L (3.5-5.1) 05/11/17 16:25 Chloride 106 mEq/L (98-107) 05/11/17 16:25 Carbon Dioxide 22.9 mEq/L (21.0-31.0) 05/11/17 16:25 Anion Gap 13.5 (7.0-16.0) 05/11/17 16:25 BUN 28 mg/dL (7-25) H 05/11/17 16:25 Creatinine 1.1 mg/dL (0.6-1.2) 05/11/17 16:25 Est GFR ( Amer) TNP 05/11/17 16:25 Est GFR (Non-Af Amer) TNP 05/11/17 16:25 BUN/Creatinine Ratio 25.5 05/11/17 16:25 Glucose 102 mg/dL (70-105) 05/11/17 16:25 Calcium 9.9 mg/dL (8.6-10.3) 05/11/17 16:25 Total Bilirubin 0.5 mg/dL (0.3-1.0) 05/11/17 16:25 AST 21 U/L (13-39) 05/11/17 16:25 ALT 13 U/L (7-52) 05/11/17 16:25 Alkaline Phosphatase 72 U/L (34-104) 05/11/17 16:25 Troponin I 0.02 ng/mL (0.01-0.05) 05/11/17 16:25 B-Natriuretic Peptide 68.8 pg/mL (5.0-100.0) 05/11/17 16:25 Total Protein 8.2 gm/dL (6.0-8.3) 05/11/17 16:25 Albumin 4.5 gm/dL (3.7-5.3) 05/11/17 16:25 Globulin 3.7 gm/dL 05/11/17 16:25 Albumin/Globulin Ratio 1.2 (1.0-1.8) 05/11/17 16:25 Triglycerides 85 mg/dL (<150) 05/11/17 16:25 Cholesterol 216 mg/dL (<200) H 05/11/17 16:25 LDL Cholesterol Direct 139 mg/dL (75-193) 05/11/17 16:25 HDL Cholesterol 71 mg/dL (23-92) 05/11/17 16:25 TSH 2.96 uIU/ml (0.34-5.60) 05/11/17 16:25 Urine Source CLEAN C 05/14/17 16:10 Urine Color STRAW 05/14/17 16:10 Urine Clarity CLEAR (CLEAR) 05/14/17 16:10 Urine pH 6.0 (4.6 - 8.0) 05/14/17 16:10 Ur Specific [place] <= 1.005 (1.005-1.030) 05/14/17 16:10 Urine Protein NEGATIVE mg/dL (NEGATIVE) 05/14/17 16:10 Urine Glucose (UA) NEGATIVE mg/dL (NEGATIVE) 05/14/17 16:10 Urine Ketones NEGATIVE mg/dL (NEGATIVE) 05/14/17 16:10 Urine Blood TRACE (NEGATIVE) 05/14/17 16:10 Urine Nitrate NEGATIVE (NEGATIVE) 05/14/17 16:10 Urine Bilirubin NEGATIVE (NEGATIVE) 05/14/17 16:10 Urine Urobilinogen 0.2 E.U./dL (0.2 - 1.0) 05/14/17 16:10 Ur Leukocyte Esterase NEGATIVE (NEGATIVE) 05/14/17 16:10 Urine RBC 0-2 /hpf (0-5) 05/14/17 16:10 Urine WBC 0-2 /hpf (0-5) 05/14/17 16:10 Ur Epithelial Cells NONE SEEN /lpf (FEW) 05/14/17 16:10 Urine Bacteria NONE SEEN /hpf (NONE SEEN) 05/14/17 16:10 RPR NONREACTIVE (NONREACTIVE) 05/11/17 16:25 - Physical Exam Vitals and I&O: Vital Signs Temp 97.6 F 05/16/17 20:00 Pulse 65 05/16/17 20:00 Resp 20 05/16/17 20:00 BP 134/74 05/16/17 20:00 Pulse Ox 97 05/16/17 20:00 Intake & Output 05/16/17 05/16/17 05/17/17 06:59 18:59 06:59 Intake Total 420 1200 Balance 420 1200 Intake: Oral 420 1200 Other: # Voids 3 # Bowel Movements 0 1 Active Medications: Current Medications Acetaminophen (Tylenol) 650 mg PO Q6H PRN PRN Reason: Mild Pain/Headache/T above 101 Stop: 07/10/17 21:29 Last Admin: 05/13/17 15:22 Dose: 650 mg Amlodipine Besylate (Norvasc) 2.5 mg PO DAILY [facility] Stop: 07/12/17 08:59 Last Admin: 05/16/17 08:28 Dose: 2.5 mg Aripiprazole (Abilify) 10 mg PO DAILY [facility] PRN Reason: Protocol Stop: 07/15/17 05:49 Donepezil HCl (Aricept) 5 mg PO HS [facility] Stop: 07/11/17 20:59 Last Admin: 05/15/17 20:12 Dose: 5 mg Gabapentin (Neurontin) 100 mg PO HS [facility] Stop: 07/11/17 20:59 Last Admin: 05/15/17 20:12 Dose: 100 mg Lactobacillus Rhamnosus (Culturelle) 1 each PO DAILY [facility] Stop: 07/12/17 08:59 Last Admin: 05/16/17 08:28 Dose: 1 each Lorazepam (Ativan) 1 mg PO Q6H PRN; Protocol PRN Reason: Anxiety/Agitation Stop: 07/10/17 21:29 Magnesium Hydroxide (Milk Of Magnesia) 30 ml PO HS PRN PRN Reason: Constipation Stop: 07/10/17 21:29 Magnesium Oxide (Mag-Oxide) 400 mg PO BID [facility] Stop: 07/11/17 16:59 Last Admin: 05/16/17 16:36 Dose: 400 mg Rivaroxaban (Xarelto) 20 mg PO DAILY [facility] Stop: 07/12/17 08:59 Last Admin: 05/16/17 08:28 Dose: 20 mg Zolpidem Tartrate (Ambien) 5 mg PO HS PRN PRN Reason: Insomnia Stop: 07/10/17 21:29 Last Admin: 05/15/17 20:12 Dose: 5 mg General: demented HEENT: NC/AT, PERRLA, EOMI, anicteric sclerae, throat clear Neck: Supple, No JVD, No thyromegaly, +2 carotid pulse wo bruit, No LAD Lungs: CTAB Cardiovascular: RRR, Normal S1, Normal S2, without murmur Abdomen: soft, non-tender, tender, thin Extremities: clear Neurological: no change Internal Medicine Assmt/Plan - Assessment Assessment: 1.HTN 2.DVT OF LOWER EXTRE. 3.PERIPHERAL NEUROPATHY OF LOWER EXTRE. 4.DEMENTIA. - Plan Plan: CONTINUE ON CURRENT MEDICATION AND DIET. Nutritional Asmnt/Malnutr-PDOC - Dietary Evaluation Malnutrition Findings (Please click <Entered> for more info): Nutritional Asmnt/Malnutrition Start: 05/15/17 17: 50 Text: Status: Complete Freq: Document 05/15/17 17:50 MYRANDA (Rec: 05/15/17 18:08 GSARMANI [email or web address]) Nutritional Asmnt/Malnutrition Patient General Information Nutritional Screening Moderate Risk Screening Diagnosis Dementia with behavioral disturbances, anxiety Pertinent Medical Hx/Surgical Hx Dementia, HTN, GERD, neuropathy, DVT Subjective Information 81 year old female from SNF. No known allergies on EMR, pt report allergies to shellfish. Pt was very talkaive, goes off topic, slight forgetfulness noted, however able to provide basic nutrition hx. Pt confirmed with typewriters functional tester allergies to shellfish only, hx of allergic reaction rushed to hospital and receievd a shot. Pt stated no allergies to anything else , likes salmon, tuna... etc. FNS notified and food preferences noted. No severe muscle fat wasting. No difficulties chewing/ swallowing. Pt report UBW 190lb many years ago. Pt report "wonderful appetite" and food has been "excellent." Pt also appeared health concious, requested for additional Mrs. Baires packets and was able to explain purpose/benefit. Avg PO intake 100% of meals since adm, meeting nutritinoal needs. Current Diet Order/ Nutrition Support Regular, SANJAY Pertinent Medications LASHAY Beltran, Mag-Oxide Pertinent Labs Reviewed. Nutritional Hx/Data Height 1.68 m Height (Calculated Centimeters) 167.6 Current Weight (lbs) 73.845 kg Weight (Calculated Kilograms) 73.8 Weight (Calculated Grams) 43771.8 [place] Body Weight 130 Recent Weight Change No Weight Status Overweight GI Symptoms Food Allergies Yes Cultural/Ethnic/Holiness Belief Allergies to shellfish. Pt with preference for extra Mrs. Baires packets, all other fish, tea, hot cocoa, apple juice. Dislikes coffee, mashed potato with gravy. Usual diet at home [place]: regular, SANJAY Skin Integrity/Comment: Perico Herbert. Bruises, discolor extremities. Current %PO Good (75-100%) Estimated Nutritional Goals BEE in Kcals: Using Current wt Calories/Kcals/Kg CBW 162.8lb/74kg Kcals Calculated 1850-2220kcal (25-30kcal/kg) Protein: Using Current wt Protein Calculated 74g (1g/kg) Fluid: ml 1850-2220ml (1ml/kcal) Nutritional Problem 1. Problem Problem No nutritional problem at this time. Intervention/Recommendation Comments 1. Continue with current diet order. Avg PO intake is adequate. Pt's food preferences noted, FNS notified. 2. Pt report food allergies to shellfish only, FNS notified, documented under diet order. Expected Outcomes/Goals Expected Outcomes/Goals 1. PO intake continue to meet at least 75% of estimated nutritinoal needs.
--- NOTE | 2017-05-17 02:14 | Progress Notes ---
DATE: 05/16/2017 SUBJECTIVE: Chart reviewed and the patient interviewed. Also, discussed the patient's condition with the staff and reviewed records and labs. The patient continued to be manicky and she is still delusional. The patient is also still having racing thoughts and hyperverbal. 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 She also is pacing up and down in the unit. Otherwise, the patient is cooperative and compliant with taking her medications with no side effects of medications. ASSESSMENT: The patient is still manicky and delusional. TREATMENT PLAN: We will continue to monitor her behavior and her condition closely. Also, continue Abilify and continue to follow up closely. JOB# [id number]
[2017-05-17] MEDS: Lactobacillus Rhamnosus 10 Billion CFU Capsule PO SCH (08:10)
--- NOTE | 2017-05-17 16:52 | Internal Medicine Prog Note ---
Internal Medicine Subjective - Subjective Service Date: 05/17/17 Patient seen and examined:: without staff Patient is:: awake, robyn chair, talking Per staff patient has:: no adverse event Internal Medicine Objective - Results Result Diagrams: 05/11/17 16:25 05/11/17 16:25 Recent Labs: Laboratory Last Values WBC 8.2 Th/cmm (4.8-10.8) 05/11/17 16:25 RBC 3.74 Mil/cmm (3.80-5.20) L 05/11/17 16:25 Hgb 11.7 gm/dL (12-16) L 05/11/17 16:25 Hct 34.0 % (41.0-60) L 05/11/17 16:25 MCV 91.0 fl (81-100) 05/11/17 16:25 MCH 31.2 pg (27.0-31.0) H 05/11/17 16:25 MCHC Differential 34.3 pg (28.0-36.0) 05/11/17 16:25 RDW 13.9 % (11.5-20.0) 05/11/17 16:25 Plt Count 178 Th/cmm (150-400) 05/11/17 16:25 MPV 7.8 fl 05/11/17 16:25 Neutrophils (Manual) 47 % (40-80) 05/11/17 16:25 Lymphocytes 41 % (20-50) 05/11/17 16:25 Monocytes 11 % (2-10) H 05/11/17 16:25 Basophils 1 % (0-3) 05/11/17 16:25 Platelet Estimate ADEQUATE (NORMAL) 05/11/17 16:25 PT 9.7 SECONDS (9.5-11.5) 05/11/17 16:25 INR 0.93 (0.5-1.4) 05/11/17 16:25 PTT (Actin FS) 25.4 SECONDS (26.0-38.0) L 05/11/17 16:25 Sodium 138 mEq/L (136-145) 05/11/17 16:25 Potassium 4.4 mEq/L (3.5-5.1) 05/11/17 16:25 Chloride 106 mEq/L (98-107) 05/11/17 16:25 Carbon Dioxide 22.9 mEq/L (21.0-31.0) 05/11/17 16:25 Anion Gap 13.5 (7.0-16.0) 05/11/17 16:25 BUN 28 mg/dL (7-25) H 05/11/17 16:25 Creatinine 1.1 mg/dL (0.6-1.2) 05/11/17 16:25 Est GFR ( Amer) TNP 05/11/17 16:25 Est GFR (Non-Af Amer) TNP 05/11/17 16:25 BUN/Creatinine Ratio 25.5 05/11/17 16:25 Glucose 102 mg/dL (70-105) 05/11/17 16:25 Calcium 9.9 mg/dL (8.6-10.3) 05/11/17 16:25 Total Bilirubin 0.5 mg/dL (0.3-1.0) 05/11/17 16:25 AST 21 U/L (13-39) 05/11/17 16:25 ALT 13 U/L (7-52) 05/11/17 16:25 Alkaline Phosphatase 72 U/L (34-104) 05/11/17 16:25 Troponin I 0.02 ng/mL (0.01-0.05) 05/11/17 16:25 B-Natriuretic Peptide 68.8 pg/mL (5.0-100.0) 05/11/17 16:25 Total Protein 8.2 gm/dL (6.0-8.3) 05/11/17 16:25 Albumin 4.5 gm/dL (3.7-5.3) 05/11/17 16:25 Globulin 3.7 gm/dL 05/11/17 16:25 Albumin/Globulin Ratio 1.2 (1.0-1.8) 05/11/17 16:25 Triglycerides 85 mg/dL (<150) 05/11/17 16:25 Cholesterol 216 mg/dL (<200) H 05/11/17 16:25 LDL Cholesterol Direct 139 mg/dL (75-193) 05/11/17 16:25 HDL Cholesterol 71 mg/dL (23-92) 05/11/17 16:25 TSH 2.96 uIU/ml (0.34-5.60) 05/11/17 16:25 Urine Source CLEAN C 05/14/17 16:10 Urine Color STRAW 05/14/17 16:10 Urine Clarity CLEAR (CLEAR) 05/14/17 16:10 Urine pH 6.0 (4.6 - 8.0) 05/14/17 16:10 Ur Specific [place] <= 1.005 (1.005-1.030) 05/14/17 16:10 Urine Protein NEGATIVE mg/dL (NEGATIVE) 05/14/17 16:10 Urine Glucose (UA) NEGATIVE mg/dL (NEGATIVE) 05/14/17 16:10 Urine Ketones NEGATIVE mg/dL (NEGATIVE) 05/14/17 16:10 Urine Blood TRACE (NEGATIVE) 05/14/17 16:10 Urine Nitrate NEGATIVE (NEGATIVE) 05/14/17 16:10 Urine Bilirubin NEGATIVE (NEGATIVE) 05/14/17 16:10 Urine Urobilinogen 0.2 E.U./dL (0.2 - 1.0) 05/14/17 16:10 Ur Leukocyte Esterase NEGATIVE (NEGATIVE) 05/14/17 16:10 Urine RBC 0-2 /hpf (0-5) 05/14/17 16:10 Urine WBC 0-2 /hpf (0-5) 05/14/17 16:10 Ur Epithelial Cells NONE SEEN /lpf (FEW) 05/14/17 16:10 Urine Bacteria NONE SEEN /hpf (NONE SEEN) 05/14/17 16:10 RPR NONREACTIVE (NONREACTIVE) 05/11/17 16:25 - Physical Exam Vitals and I&O: Vital Signs Temp 98.3 F 05/17/17 14:00 Pulse 80 05/17/17 14:00 Resp 20 05/17/17 14:00 BP 135/72 05/17/17 14:00 Pulse Ox 97 05/17/17 14:00 Intake & Output 05/16/17 05/17/17 05/17/17 18:59 06:59 18:59 Intake Total 1200 120 Balance 1200 120 Intake: Oral 1200 120 Other: # Voids 3 # Bowel Movements 1 Active Medications: Current Medications Acetaminophen (Tylenol) 650 mg PO Q6H PRN PRN Reason: Mild Pain/Headache/T above 101 Stop: 07/10/17 21:29 Last Admin: 05/13/17 15:22 Dose: 650 mg Amlodipine Besylate (Norvasc) 2.5 mg PO DAILY [facility] Stop: 07/12/17 08:59 Last Admin: 05/17/17 08:11 Dose: 2.5 mg Aripiprazole (Abilify) 10 mg PO DAILY [facility] PRN Reason: Protocol Stop: 07/15/17 05:49 Last Admin: 05/17/17 08:10 Dose: 10 mg Donepezil HCl (Aricept) 5 mg PO HS [facility] Stop: 07/11/17 20:59 Last Admin: 05/16/17 21:42 Dose: 5 mg Gabapentin (Neurontin) 100 mg PO HS [facility] Stop: 07/11/17 20:59 Last Admin: 05/16/17 21:42 Dose: 100 mg Lactobacillus Rhamnosus (Culturelle) 1 each PO DAILY [facility] Stop: 07/12/17 08:59 Last Admin: 05/17/17 08:10 Dose: 1 each Lorazepam (Ativan) 1 mg PO Q6H PRN; Protocol PRN Reason: Anxiety/Agitation Stop: 07/10/17 21:29 Magnesium Hydroxide (Milk Of Magnesia) 30 ml PO HS PRN PRN Reason: Constipation Stop: 07/10/17 21:29 Magnesium Oxide (Mag-Oxide) 400 mg PO BID [facility] Stop: 07/11/17 16:59 Last Admin: 05/17/17 16:25 Dose: 400 mg Rivaroxaban (Xarelto) 20 mg PO DAILY [facility] Stop: 07/12/17 08:59 Last Admin: 05/17/17 08:10 Dose: 20 mg Zolpidem Tartrate (Ambien) 5 mg PO HS PRN PRN Reason: Insomnia Stop: 07/10/17 21:29 Last Admin: 05/16/17 21:42 Dose: 5 mg General: demented HEENT: NC/AT, PERRLA, EOMI, anicteric sclerae, throat clear Neck: Supple, No JVD, No thyromegaly, +2 carotid pulse wo bruit, No LAD Lungs: CTAB Cardiovascular: RRR, Normal S1, Normal S2, without murmur Abdomen: soft, non-tender, tender, thin Extremities: clear Neurological: no change Internal Medicine Assmt/Plan - Assessment Assessment: 1.HTN 2.DVT OF LOWER EXTRE. 3.PERIPHERAL NEUROPATHY OF LOWER EXTRE. 4.DEMENTIA. - Plan Plan: CONTINUE ON CURRENT MEDICATION AND DIET. Nutritional Asmnt/Malnutr-PDOC - Dietary Evaluation Malnutrition Findings (Please click <Entered> for more info): Nutritional Asmnt/Malnutrition Start: 05/15/17 17: 50 Text: Status: Complete Freq: Document 05/15/17 17:50 MYRANDA (Rec: 05/15/17 18:08 [email or web address]) Nutritional Asmnt/Malnutrition Patient General Information Nutritional Screening Moderate Risk Screening Diagnosis Dementia with behavioral disturbances, anxiety Pertinent Medical Hx/Surgical Hx Dementia, HTN, GERD, neuropathy, DVT Subjective Information 81 year old female from SNF. No known allergies on EMR, pt report allergies to shellfish. Pt was very talkaive, goes off topic, slight forgetfulness noted, however able to provide basic nutrition hx. Pt confirmed with production underwriter allergies to shellfish only, hx of allergic reaction rushed to hospital and receievd a shot. Pt stated no allergies to anything else , likes salmon, tuna... etc. FNS notified and food preferences noted. No severe muscle fat wasting. No difficulties chewing/ swallowing. Pt report UBW 190lb many years ago. Pt report "wonderful appetite" and food has been "excellent." Pt also appeared health concious, requested for additional . Dequan packets and was able to explain purpose/benefit. Avg PO intake 100% of meals since adm, meeting nutritinoal needs. Current Diet Order/ Nutrition Support Regular, SANJAY Pertinent Medications Kassylle, MOM, Mag-Oxide Pertinent Labs Reviewed. Nutritional Hx/Data Height 1.68 m Height (Calculated Centimeters) 167.6 Current Weight (lbs) 73.845 kg Weight (Calculated Kilograms) 73.8 Weight (Calculated Grams) 79463.8 [place] Body Weight 130 Recent Weight Change No Weight Status Overweight GI Symptoms Food Allergies Yes Cultural/Ethnic/Christian Belief Allergies to shellfish. Pt with preference for extra Mrs. Dash packets, all other fish, tea, hot cocoa, apple juice. Dislikes coffee, mashed potato with gravy. Usual diet at home [place]: regular, SANJAY Skin Integrity/Comment: Perico Herbert. Bruises, discolor extremities. Current %PO Good (75-100%) Estimated Nutritional Goals BEE in Kcals: Using Current wt Calories/Kcals/Kg CBW 162.8lb/74kg Kcals Calculated 1850-2220kcal (25-30kcal/kg) Protein: Using Current wt Protein Calculated 74g (1g/kg) Fluid: ml 1850-2220ml (1ml/kcal) Nutritional Problem 1. Problem Problem No nutritional problem at this time. Intervention/Recommendation Comments 1. Continue with current diet order. Avg PO intake is adequate. Pt's food preferences noted, FNS notified. 2. Pt report food allergies to shellfish only, FNS notified, documented under diet order. Expected Outcomes/Goals Expected Outcomes/Goals 1. PO intake continue to meet at least 75% of estimated nutritinoal needs.
--- NOTE | 2017-05-17 21:22 | Progress Notes ---
DATE: 05/17/2017 SUBJECTIVE: Chart reviewed and the patient interviewed. Also, discussed the patient's condition with the staff and reviewed records and labs. The patient is still in a manic state and she is still hypertalkative and hyperactive. The patient also still has delusions and continues to talk about different positions that she had in the [employer] and [employer]. She also still needs lots of redirections. Otherwise, the patient is compliant with taking her medications, no side effects of medications. The patient is still pacing up and down the unit in a manic state and needs lots of redirections. ASSESSMENT: The patient is still manicky and hyper. TREATMENT PLAN: We will continue monitoring her behavior and her condition closely. Also, continue Abilify 10 mg every day and Aricept 5 mg at bedtime and we will continue to work on her agitation and irritability and we will continue to follow up . JOB# [id number]
[2017-05-18] MEDS: Lactobacillus Rhamnosus 10 Billion CFU Capsule PO SCH (10:55)
--- NOTE | 2017-05-18 21:26 | Internal Medicine Prog Note ---
Internal Medicine Subjective - Subjective Service Date: 05/18/17 Patient seen and examined:: without staff Patient is:: awake, robyn chair, talking Per staff patient has:: no adverse event Internal Medicine Objective - Results Result Diagrams: 05/11/17 16:25 05/11/17 16:25 Recent Labs: Laboratory Last Values WBC 8.2 Th/cmm (4.8-10.8) 05/11/17 16:25 RBC 3.74 Mil/cmm (3.80-5.20) L 05/11/17 16:25 Hgb 11.7 gm/dL (12-16) L 05/11/17 16:25 Hct 34.0 % (41.0-60) L 05/11/17 16:25 MCV 91.0 fl (81-100) 05/11/17 16:25 MCH 31.2 pg (27.0-31.0) H 05/11/17 16:25 MCHC Differential 34.3 pg (28.0-36.0) 05/11/17 16:25 RDW 13.9 % (11.5-20.0) 05/11/17 16:25 Plt Count 178 Th/cmm (150-400) 05/11/17 16:25 MPV 7.8 fl 05/11/17 16:25 Neutrophils (Manual) 47 % (40-80) 05/11/17 16:25 Lymphocytes 41 % (20-50) 05/11/17 16:25 Monocytes 11 % (2-10) H 05/11/17 16:25 Basophils 1 % (0-3) 05/11/17 16:25 Platelet Estimate ADEQUATE (NORMAL) 05/11/17 16:25 PT 9.7 SECONDS (9.5-11.5) 05/11/17 16:25 INR 0.93 (0.5-1.4) 05/11/17 16:25 PTT (Actin FS) 25.4 SECONDS (26.0-38.0) L 05/11/17 16:25 Sodium 138 mEq/L (136-145) 05/11/17 16:25 Potassium 4.4 mEq/L (3.5-5.1) 05/11/17 16:25 Chloride 106 mEq/L (98-107) 05/11/17 16:25 Carbon Dioxide 22.9 mEq/L (21.0-31.0) 05/11/17 16:25 Anion Gap 13.5 (7.0-16.0) 05/11/17 16:25 BUN 28 mg/dL (7-25) H 05/11/17 16:25 Creatinine 1.1 mg/dL (0.6-1.2) 05/11/17 16:25 Est GFR ( Amer) TNP 05/11/17 16:25 Est GFR (Non-Af Amer) TNP 05/11/17 16:25 BUN/Creatinine Ratio 25.5 05/11/17 16:25 Glucose 102 mg/dL (70-105) 05/11/17 16:25 Calcium 9.9 mg/dL (8.6-10.3) 05/11/17 16:25 Total Bilirubin 0.5 mg/dL (0.3-1.0) 05/11/17 16:25 AST 21 U/L (13-39) 05/11/17 16:25 ALT 13 U/L (7-52) 05/11/17 16:25 Alkaline Phosphatase 72 U/L (34-104) 05/11/17 16:25 Troponin I 0.02 ng/mL (0.01-0.05) 05/11/17 16:25 B-Natriuretic Peptide 68.8 pg/mL (5.0-100.0) 05/11/17 16:25 Total Protein 8.2 gm/dL (6.0-8.3) 05/11/17 16:25 Albumin 4.5 gm/dL (3.7-5.3) 05/11/17 16:25 Globulin 3.7 gm/dL 05/11/17 16:25 Albumin/Globulin Ratio 1.2 (1.0-1.8) 05/11/17 16:25 Triglycerides 85 mg/dL (<150) 05/11/17 16:25 Cholesterol 216 mg/dL (<200) H 05/11/17 16:25 LDL Cholesterol Direct 139 mg/dL (75-193) 05/11/17 16:25 HDL Cholesterol 71 mg/dL (23-92) 05/11/17 16:25 TSH 2.96 uIU/ml (0.34-5.60) 05/11/17 16:25 Urine Source CLEAN C 05/14/17 16:10 Urine Color STRAW 05/14/17 16:10 Urine Clarity CLEAR (CLEAR) 05/14/17 16:10 Urine pH 6.0 (4.6 - 8.0) 05/14/17 16:10 Ur Specific [place] <= 1.005 (1.005-1.030) 05/14/17 16:10 Urine Protein NEGATIVE mg/dL (NEGATIVE) 05/14/17 16:10 Urine Glucose (UA) NEGATIVE mg/dL (NEGATIVE) 05/14/17 16:10 Urine Ketones NEGATIVE mg/dL (NEGATIVE) 05/14/17 16:10 Urine Blood TRACE (NEGATIVE) 05/14/17 16:10 Urine Nitrate NEGATIVE (NEGATIVE) 05/14/17 16:10 Urine Bilirubin NEGATIVE (NEGATIVE) 05/14/17 16:10 Urine Urobilinogen 0.2 E.U./dL (0.2 - 1.0) 05/14/17 16:10 Ur Leukocyte Esterase NEGATIVE (NEGATIVE) 05/14/17 16:10 Urine RBC 0-2 /hpf (0-5) 05/14/17 16:10 Urine WBC 0-2 /hpf (0-5) 05/14/17 16:10 Ur Epithelial Cells NONE SEEN /lpf (FEW) 05/14/17 16:10 Urine Bacteria NONE SEEN /hpf (NONE SEEN) 05/14/17 16:10 RPR NONREACTIVE (NONREACTIVE) 05/11/17 16:25 - Physical Exam Vitals and I&O: Vital Signs Temp 97.1 F 05/18/17 20:00 Pulse 63 05/18/17 20:00 Resp 20 05/18/17 20:00 BP 141/56 05/18/17 20:00 Pulse Ox 95 05/18/17 20:00 Intake & Output 05/18/17 05/18/17 05/19/17 06:59 18:59 06:59 Intake Total 120 1000 Balance 120 1000 Intake: Oral 120 1000 Other: # Voids 3 4 # Bowel Movements 1 Active Medications: Current Medications Acetaminophen (Tylenol) 650 mg PO Q6H PRN PRN Reason: Mild Pain/Headache/T above 101 Stop: 07/10/17 21:29 Last Admin: 05/13/17 15:22 Dose: 650 mg Amlodipine Besylate (Norvasc) 2.5 mg PO DAILY [facility] Stop: 07/12/17 08:59 Last Admin: 05/18/17 10:53 Dose: 2.5 mg Aripiprazole (Abilify) 15 mg PO DAILY [facility] PRN Reason: Protocol Stop: 07/17/17 06:23 Last Admin: 05/18/17 10:54 Dose: 15 mg Donepezil HCl (Aricept) 5 mg PO HS [facility] Stop: 07/11/17 20:59 Last Admin: 05/18/17 20:34 Dose: 5 mg Gabapentin (Neurontin) 100 mg PO HS [facility] Stop: 07/11/17 20:59 Last Admin: 05/18/17 20:34 Dose: 100 mg Lactobacillus Rhamnosus (Culturelle) 1 each PO DAILY [facility] Stop: 07/12/17 08:59 Last Admin: 05/18/17 10:55 Dose: 1 each Lorazepam (Ativan) 1 mg PO Q6H PRN; Protocol PRN Reason: Anxiety/Agitation Stop: 07/10/17 21:29 Magnesium Hydroxide (Milk Of Magnesia) 30 ml PO HS PRN PRN Reason: Constipation Stop: 07/10/17 21:29 Magnesium Oxide (Mag-Oxide) 400 mg PO BID [facility] Stop: 07/11/17 16:59 Last Admin: 05/18/17 16:06 Dose: 400 mg Rivaroxaban (Xarelto) 20 mg PO DAILY [facility] Stop: 07/12/17 08:59 Last Admin: 05/18/17 10:54 Dose: 20 mg Zolpidem Tartrate (Ambien) 5 mg PO HS PRN PRN Reason: Insomnia Stop: 07/10/17 21:29 Last Admin: 05/17/17 20:36 Dose: 5 mg General: demented HEENT: NC/AT, PERRLA, EOMI, anicteric sclerae, throat clear Neck: Supple, No JVD, No thyromegaly, +2 carotid pulse wo bruit, No LAD Lungs: CTAB Cardiovascular: RRR, Normal S1, Normal S2, without murmur Abdomen: soft, non-tender, tender, thin Extremities: clear Neurological: no change Internal Medicine Assmt/Plan - Assessment Assessment: 1.HTN 2.DVT OF LOWER EXTRE. 3.PERIPHERAL NEUROPATHY OF LOWER EXTRE. 4.DEMENTIA. - Plan Plan: CONTINUE ON CURRENT MEDICATION AND DIET. Nutritional Asmnt/Malnutr-PDOC - Dietary Evaluation Malnutrition Findings (Please click <Entered> for more info): Nutritional Asmnt/Malnutrition Start: 05/15/17 17: 50 Text: Status: Complete Freq: Document 05/15/17 17:50 MYRANDA (Rec: 05/15/17 18:08 GSARMANI [email or web address]) Nutritional Asmnt/Malnutrition Patient General Information Nutritional Screening Moderate Risk Screening Diagnosis Dementia with behavioral disturbances, anxiety Pertinent Medical Hx/Surgical Hx Dementia, HTN, GERD, neuropathy, DVT Subjective Information 81 year old female from SNF. No known allergies on EMR, pt report allergies to shellfish. Pt was very talkaive, goes off topic, slight forgetfulness noted, however able to provide basic nutrition hx. Pt confirmed with technical publications writer allergies to shellfish only, hx of allergic reaction rushed to hospital and receievd a shot. Pt stated no allergies to anything else , likes salmon, tuna... etc. FNS notified and food preferences noted. No severe muscle fat wasting. No difficulties chewing/ swallowing. Pt report UBW 190lb many years ago. Pt report "wonderful appetite" and food has been "excellent." Pt also appeared health concious, requested for additional . Dequan packets and was able to explain purpose/benefit. Avg PO intake 100% of meals since adm, meeting nutritinoal needs. Current Diet Order/ Nutrition Support Regular, SANJAY Pertinent Medications Kassyl[place], MOM, Mag-Oxide Pertinent Labs Reviewed. Nutritional Hx/Data Height 1.68 m Height (Calculated Centimeters) 167.6 Current Weight (lbs) 73.845 kg Weight (Calculated Kilograms) 73.8 Weight (Calculated Grams) 68853.8 [place] Body Weight 130 Recent Weight Change No Weight Status Overweight GI Symptoms Food Allergies Yes Cultural/Ethnic/Faith Belief Allergies to shellfish. Pt with preference for extra Mrs. Dash packets, all other fish, tea, hot cocoa, apple juice. Dislikes coffee, mashed potato with gravy. Usual diet at home [place]: regular, SANJAY Skin Integrity/Comment: Perico Herbert. Bruises, discolor extremities. Current %PO Good (75-100%) Estimated Nutritional Goals BEE in Kcals: Using Current wt Calories/Kcals/Kg CBW 162.8lb/74kg Kcals Calculated 1850-2220kcal (25-30kcal/kg) Protein: Using Current wt Protein Calculated 74g (1g/kg) Fluid: ml 1850-2220ml (1ml/kcal) Nutritional Problem 1. Problem Problem No nutritional problem at this time. Intervention/Recommendation Comments 1. Continue with current diet order. Avg PO intake is adequate. Pt's food preferences noted, FNS notified. 2. Pt report food allergies to shellfish only, FNS notified, documented under diet order. Expected Outcomes/Goals Expected Outcomes/Goals 1. PO intake continue to meet at least 75% of estimated nutritinoal needs.
--- NOTE | 2017-05-18 21:40 | Progress Notes ---
DATE: 05/18/2017 SUBJECTIVE: Chart was reviewed and the patient interviewed. Also I have discussed the patient's condition with the staff and reviewed records and labs. Patient is still in angry and in irritable mood. Patient also is still easily agitated and she is still having severe mood swings and severe anxiety. Patient also is interacting minimally with peers and with others. She is singing while she is sleeping in her bed and she is unpredictable. The patient also is still delusional and continues to talk about her history of being ____. ASSESSMENT: Patient is still in ____ and in irritable mood. TREATMENT PLAN: We will continue monitoring her behavior and her condition closely. We will also continue to work on her poor impulse control. Also, we will increase Abilify to 15 mg every day and we will continue to follow up closely. [facility]# [id number]
[2017-05-19] MEDS: Lactobacillus Rhamnosus 10 Billion CFU Capsule PO SCH (09:44)
--- NOTE | 2017-05-19 14:42 | Internal Medicine Prog Note ---
Internal Medicine Subjective - Subjective Service Date: 05/19/17 Patient seen and examined:: without staff Patient is:: awake, robyn chair, talking Per staff patient has:: no adverse event Internal Medicine Objective - Results Result Diagrams: 05/11/17 16:25 05/11/17 16:25 Recent Labs: Laboratory Last Values WBC 8.2 Th/cmm (4.8-10.8) 05/11/17 16:25 RBC 3.74 Mil/cmm (3.80-5.20) L 05/11/17 16:25 Hgb 11.7 gm/dL (12-16) L 05/11/17 16:25 Hct 34.0 % (41.0-60) L 05/11/17 16:25 MCV 91.0 fl (81-100) 05/11/17 16:25 MCH 31.2 pg (27.0-31.0) H 05/11/17 16:25 MCHC Differential 34.3 pg (28.0-36.0) 05/11/17 16:25 RDW 13.9 % (11.5-20.0) 05/11/17 16:25 Plt Count 178 Th/cmm (150-400) 05/11/17 16:25 MPV 7.8 fl 05/11/17 16:25 Neutrophils (Manual) 47 % (40-80) 05/11/17 16:25 Lymphocytes 41 % (20-50) 05/11/17 16:25 Monocytes 11 % (2-10) H 05/11/17 16:25 Basophils 1 % (0-3) 05/11/17 16:25 Platelet Estimate ADEQUATE (NORMAL) 05/11/17 16:25 PT 9.7 SECONDS (9.5-11.5) 05/11/17 16:25 INR 0.93 (0.5-1.4) 05/11/17 16:25 PTT (Actin FS) 25.4 SECONDS (26.0-38.0) L 05/11/17 16:25 Sodium 138 mEq/L (136-145) 05/11/17 16:25 Potassium 4.4 mEq/L (3.5-5.1) 05/11/17 16:25 Chloride 106 mEq/L (98-107) 05/11/17 16:25 Carbon Dioxide 22.9 mEq/L (21.0-31.0) 05/11/17 16:25 Anion Gap 13.5 (7.0-16.0) 05/11/17 16:25 BUN 28 mg/dL (7-25) H 05/11/17 16:25 Creatinine 1.1 mg/dL (0.6-1.2) 05/11/17 16:25 Est GFR ( Amer) TNP 05/11/17 16:25 Est GFR (Non-Af Amer) TNP 05/11/17 16:25 BUN/Creatinine Ratio 25.5 05/11/17 16:25 Glucose 102 mg/dL (70-105) 05/11/17 16:25 Calcium 9.9 mg/dL (8.6-10.3) 05/11/17 16:25 Total Bilirubin 0.5 mg/dL (0.3-1.0) 05/11/17 16:25 AST 21 U/L (13-39) 05/11/17 16:25 ALT 13 U/L (7-52) 05/11/17 16:25 Alkaline Phosphatase 72 U/L (34-104) 05/11/17 16:25 Troponin I 0.02 ng/mL (0.01-0.05) 05/11/17 16:25 B-Natriuretic Peptide 68.8 pg/mL (5.0-100.0) 05/11/17 16:25 Total Protein 8.2 gm/dL (6.0-8.3) 05/11/17 16:25 Albumin 4.5 gm/dL (3.7-5.3) 05/11/17 16:25 Globulin 3.7 gm/dL 05/11/17 16:25 Albumin/Globulin Ratio 1.2 (1.0-1.8) 05/11/17 16:25 Triglycerides 85 mg/dL (<150) 05/11/17 16:25 Cholesterol 216 mg/dL (<200) H 05/11/17 16:25 LDL Cholesterol Direct 139 mg/dL (75-193) 05/11/17 16:25 HDL Cholesterol 71 mg/dL (23-92) 05/11/17 16:25 TSH 2.96 uIU/ml (0.34-5.60) 05/11/17 16:25 Urine Source CLEAN C 05/14/17 16:10 Urine Color STRAW 05/14/17 16:10 Urine Clarity CLEAR (CLEAR) 05/14/17 16:10 Urine pH 6.0 (4.6 - 8.0) 05/14/17 16:10 Ur Specific [place] <= 1.005 (1.005-1.030) 05/14/17 16:10 Urine Protein NEGATIVE mg/dL (NEGATIVE) 05/14/17 16:10 Urine Glucose (UA) NEGATIVE mg/dL (NEGATIVE) 05/14/17 16:10 Urine Ketones NEGATIVE mg/dL (NEGATIVE) 05/14/17 16:10 Urine Blood TRACE (NEGATIVE) 05/14/17 16:10 Urine Nitrate NEGATIVE (NEGATIVE) 05/14/17 16:10 Urine Bilirubin NEGATIVE (NEGATIVE) 05/14/17 16:10 Urine Urobilinogen 0.2 E.U./dL (0.2 - 1.0) 05/14/17 16:10 Ur Leukocyte Esterase NEGATIVE (NEGATIVE) 05/14/17 16:10 Urine RBC 0-2 /hpf (0-5) 05/14/17 16:10 Urine WBC 0-2 /hpf (0-5) 05/14/17 16:10 Ur Epithelial Cells NONE SEEN /lpf (FEW) 05/14/17 16:10 Urine Bacteria NONE SEEN /hpf (NONE SEEN) 05/14/17 16:10 RPR NONREACTIVE (NONREACTIVE) 05/11/17 16:25 - Physical Exam Vitals and I&O: Vital Signs Temp 97.7 F 05/19/17 07:12 Pulse 72 05/19/17 09:45 Resp 19 05/19/17 07:12 BP 134/70 05/19/17 09:45 Pulse Ox 97 05/19/17 07:12 Intake & Output 05/18/17 05/19/17 05/19/17 18:59 06:59 18:59 Intake Total 1000 1000 Balance 1000 1000 Intake: Oral 1000 1000 Other: # Voids 4 3 # Bowel Movements 1 Active Medications: Current Medications Acetaminophen (Tylenol) 650 mg PO Q6H PRN PRN Reason: Mild Pain/Headache/T above 101 Stop: 07/10/17 21:29 Last Admin: 05/13/17 15:22 Dose: 650 mg Amlodipine Besylate (Norvasc) 2.5 mg PO DAILY MAYCO Stop: 07/12/17 08:59 Last Admin: 05/19/17 09:45 Dose: 2.5 mg Aripiprazole (Abilify) 15 mg PO DAILY MAYCO PRN Reason: Protocol Stop: 07/17/17 06:23 Last Admin: 05/19/17 09:44 Dose: 15 mg Donepezil HCl (Aricept) 5 mg PO HS MAYCO Stop: 07/11/17 20:59 Last Admin: 05/18/17 20:34 Dose: 5 mg Gabapentin (Neurontin) 100 mg PO HS MAYCO Stop: 07/11/17 20:59 Last Admin: 05/18/17 20:34 Dose: 100 mg Lactobacillus Rhamnosus (Culturelle) 1 each PO DAILY MAYCO Stop: 07/12/17 08:59 Last Admin: 05/19/17 09:44 Dose: 1 each Lorazepam (Ativan) 1 mg PO Q6H PRN; Protocol PRN Reason: Anxiety/Agitation Stop: 07/10/17 21:29 Magnesium Hydroxide (Milk Of Magnesia) 30 ml PO HS PRN PRN Reason: Constipation Stop: 07/10/17 21:29 Magnesium Oxide (Mag-Oxide) 400 mg PO BID MAYCO Stop: 07/11/17 16:59 Last Admin: 05/19/17 09:44 Dose: 400 mg Rivaroxaban (Xarelto) 20 mg PO DAILY MAYCO Stop: 07/12/17 08:59 Last Admin: 05/19/17 09:44 Dose: 20 mg Zolpidem Tartrate (Ambien) 5 mg PO HS PRN PRN Reason: Insomnia Stop: 07/10/17 21:29 Last Admin: 05/17/17 20:36 Dose: 5 mg General: demented HEENT: NC/AT, PERRLA, EOMI, anicteric sclerae, throat clear Neck: Supple, No JVD, No thyromegaly, +2 carotid pulse wo bruit, No LAD Lungs: CTAB Cardiovascular: RRR, Normal S1, Normal S2, without murmur Abdomen: soft, non-tender, tender, thin Extremities: clear Neurological: no change Internal Medicine Assmt/Plan - Assessment Assessment: 1.HTN 2.DVT OF LOWER EXTRE. 3.PERIPHERAL NEUROPATHY OF LOWER EXTRE. 4.DEMENTIA. - Plan Plan: CONTINUE ON CURRENT MEDICATION AND DIET. Nutritional Asmnt/Malnutr-PDOC - Dietary Evaluation Malnutrition Findings (Please click <Entered> for more info): Nutritional Asmnt/Malnutrition Start: 05/15/17 17: 50 Text: Status: Complete Freq: Document 05/15/17 17:50 MYRANDA (Rec: 05/15/17 18:08 [email or web address] [email or web address]) Nutritional Asmnt/Malnutrition Patient General Information Nutritional Screening Moderate Risk Screening Diagnosis Dementia with behavioral disturbances, anxiety Pertinent Medical Hx/Surgical Hx Dementia, HTN, GERD, neuropathy, DVT Subjective Information 81 year old female from SNF. No known allergies on EMR, pt report allergies to shellfish. Pt was very talkaive, goes off topic, slight forgetfulness noted, however able to provide basic nutrition hx. Pt confirmed with senior medical writer allergies to shellfish only, hx of allergic reaction rushed to hospital and receievd a shot. Pt stated no allergies to anything else , likes salmon, tuna... etc. FNS notified and food preferences noted. No severe muscle fat wasting. No difficulties chewing/ swallowing. Pt report UBW 190lb many years ago. Pt report "wonderful appetite" and food has been "excellent." Pt also appeared health concious, requested for additional . Dequan packets and was able to explain purpose/benefit. Avg PO intake 100% of meals since adm, meeting nutritinoal needs. Current Diet Order/ Nutrition Support Regular, SANJAY Pertinent Medications Kassylle, MOM, Mag-Oxide Pertinent Labs Reviewed. Nutritional Hx/Data Height 1.68 m Height (Calculated Centimeters) 167.6 Current Weight (lbs) 73.845 kg Weight (Calculated Kilograms) 73.8 Weight (Calculated Grams) [address]64.8 [place] Body Weight 130 Recent Weight Change No Weight Status Overweight GI Symptoms Food Allergies Yes Cultural/Ethnic/Buddhist Belief Allergies to shellfish. Pt with preference for extra Mrs. Dash packets, all other fish, tea, hot cocoa, apple juice. Dislikes coffee, mashed potato with gravy. Usual diet at home [place]: regular, SANJAY Skin Integrity/Comment: Perico Herbert. Bruises, discolor extremities. Current %PO Good (75-100%) Estimated Nutritional Goals BEE in Kcals: Using Current wt Calories/Kcals/Kg CBW 162.8lb/74kg Kcals Calculated 1850-2220kcal (25-30kcal/kg) Protein: Using Current wt Protein Calculated 74g (1g/kg) Fluid: ml 1850-2220ml (1ml/kcal) Nutritional Problem 1. Problem Problem No nutritional problem at this time. Intervention/Recommendation Comments 1. Continue with current diet order. Avg PO intake is adequate. Pt's food preferences noted, FNS notified. 2. Pt report food allergies to shellfish only, FNS notified, documented under diet order. Expected Outcomes/Goals Expected Outcomes/Goals 1. PO intake continue to meet at least 75% of estimated nutritinoal needs.
--- NOTE | 2017-05-20 05:33 | Progress Notes ---
DATE: 05/19/2017 Case was discussed with staff of the patient, reviewed records. Covering for Dr. Pollock. This 81-year-old female who is demented, confused, aggressive, impulsive, unpredictable, unable to care for herself states to herself. Unable to participate in a meaningful conversation sent from a halfway. She is on Aricept 10 mg at bedtime and Abilify 15 mg daily with no side effects from sedation. No nausea, no extrapyramidal symptoms. I will continue outpatient group therapy, milieu therapy, adjust medication as needed. JOB# [id number]
[2017-05-20] MEDS: Lactobacillus Rhamnosus 10 Billion CFU Capsule PO SCH (08:30)
--- NOTE | 2017-05-20 20:40 | Internal Medicine Prog Note ---
Internal Medicine Subjective - Subjective Service Date: 05/20/17 Patient seen and examined:: without staff Patient is:: awake, robyn chair, talking Per staff patient has:: no adverse event Internal Medicine Objective - Results Result Diagrams: 05/11/17 16:25 05/11/17 16:25 Recent Labs: Laboratory Last Values WBC 8.2 Th/cmm (4.8-10.8) 05/11/17 16:25 RBC 3.74 Mil/cmm (3.80-5.20) L 05/11/17 16:25 Hgb 11.7 gm/dL (12-16) L 05/11/17 16:25 Hct 34.0 % (41.0-60) L 05/11/17 16:25 MCV 91.0 fl (81-100) 05/11/17 16:25 MCH 31.2 pg (27.0-31.0) H 05/11/17 16:25 MCHC Differential 34.3 pg (28.0-36.0) 05/11/17 16:25 RDW 13.9 % (11.5-20.0) 05/11/17 16:25 Plt Count 178 Th/cmm (150-400) 05/11/17 16:25 MPV 7.8 fl 05/11/17 16:25 Neutrophils (Manual) 47 % (40-80) 05/11/17 16:25 Lymphocytes 41 % (20-50) 05/11/17 16:25 Monocytes 11 % (2-10) H 05/11/17 16:25 Basophils 1 % (0-3) 05/11/17 16:25 Platelet Estimate ADEQUATE (NORMAL) 05/11/17 16:25 PT 9.7 SECONDS (9.5-11.5) 05/11/17 16:25 INR 0.93 (0.5-1.4) 05/11/17 16:25 PTT (Actin FS) 25.4 SECONDS (26.0-38.0) L 05/11/17 16:25 Sodium 138 mEq/L (136-145) 05/11/17 16:25 Potassium 4.4 mEq/L (3.5-5.1) 05/11/17 16:25 Chloride 106 mEq/L (98-107) 05/11/17 16:25 Carbon Dioxide 22.9 mEq/L (21.0-31.0) 05/11/17 16:25 Anion Gap 13.5 (7.0-16.0) 05/11/17 16:25 BUN 28 mg/dL (7-25) H 05/11/17 16:25 Creatinine 1.1 mg/dL (0.6-1.2) 05/11/17 16:25 Est GFR ( Amer) TNP 05/11/17 16:25 Est GFR (Non-Af Amer) TNP 05/11/17 16:25 BUN/Creatinine Ratio 25.5 05/11/17 16:25 Glucose 102 mg/dL (70-105) 05/11/17 16:25 Calcium 9.9 mg/dL (8.6-10.3) 05/11/17 16:25 Total Bilirubin 0.5 mg/dL (0.3-1.0) 05/11/17 16:25 AST 21 U/L (13-39) 05/11/17 16:25 ALT 13 U/L (7-52) 05/11/17 16:25 Alkaline Phosphatase 72 U/L (34-104) 05/11/17 16:25 Troponin I 0.02 ng/mL (0.01-0.05) 05/11/17 16:25 B-Natriuretic Peptide 68.8 pg/mL (5.0-100.0) 05/11/17 16:25 Total Protein 8.2 gm/dL (6.0-8.3) 05/11/17 16:25 Albumin 4.5 gm/dL (3.7-5.3) 05/11/17 16:25 Globulin 3.7 gm/dL 05/11/17 16:25 Albumin/Globulin Ratio 1.2 (1.0-1.8) 05/11/17 16:25 Triglycerides 85 mg/dL (<150) 05/11/17 16:25 Cholesterol 216 mg/dL (<200) H 05/11/17 16:25 LDL Cholesterol Direct 139 mg/dL (75-193) 05/11/17 16:25 HDL Cholesterol 71 mg/dL (23-92) 05/11/17 16:25 TSH 2.96 uIU/ml (0.34-5.60) 05/11/17 16:25 Urine Source CLEAN C 05/14/17 16:10 Urine Color STRAW 05/14/17 16:10 Urine Clarity CLEAR (CLEAR) 05/14/17 16:10 Urine pH 6.0 (4.6 - 8.0) 05/14/17 16:10 Ur Specific [place] <= 1.005 (1.005-1.030) 05/14/17 16:10 Urine Protein NEGATIVE mg/dL (NEGATIVE) 05/14/17 16:10 Urine Glucose (UA) NEGATIVE mg/dL (NEGATIVE) 05/14/17 16:10 Urine Ketones NEGATIVE mg/dL (NEGATIVE) 05/14/17 16:10 Urine Blood TRACE (NEGATIVE) 05/14/17 16:10 Urine Nitrate NEGATIVE (NEGATIVE) 05/14/17 16:10 Urine Bilirubin NEGATIVE (NEGATIVE) 05/14/17 16:10 Urine Urobilinogen 0.2 E.U./dL (0.2 - 1.0) 05/14/17 16:10 Ur Leukocyte Esterase NEGATIVE (NEGATIVE) 05/14/17 16:10 Urine RBC 0-2 /hpf (0-5) 05/14/17 16:10 Urine WBC 0-2 /hpf (0-5) 05/14/17 16:10 Ur Epithelial Cells NONE SEEN /lpf (FEW) 05/14/17 16:10 Urine Bacteria NONE SEEN /hpf (NONE SEEN) 05/14/17 16:10 RPR NONREACTIVE (NONREACTIVE) 05/11/17 16:25 - Physical Exam Vitals and I&O: Vital Signs Temp 97 F 05/20/17 17:06 Pulse 63 05/20/17 17:06 Resp 20 05/20/17 17:06 BP 119/57 05/20/17 17:06 Pulse Ox 96 05/20/17 17:06 Intake & Output 05/20/17 05/20/17 05/21/17 06:59 18:59 06:59 Intake Total 120 700 Balance 120 700 Intake: Oral 120 700 Other: # Voids 3 4 # Bowel Movements 3 Stool Characteristics Formed Active Medications: Current Medications Acetaminophen (Tylenol) 650 mg PO Q6H PRN PRN Reason: Mild Pain/Headache/T above 101 Stop: 07/10/17 21:29 Last Admin: 05/13/17 15:22 Dose: 650 mg Amlodipine Besylate (Norvasc) 2.5 mg PO DAILY MAYCO Stop: 07/12/17 08:59 Last Admin: 05/20/17 08:30 Dose: Not Given Aripiprazole (Abilify) 15 mg PO DAILY MAYCO PRN Reason: Protocol Stop: 07/17/17 06:23 Last Admin: 05/20/17 08:30 Dose: 15 mg Donepezil HCl (Aricept) 5 mg PO HS MAYCO Stop: 07/11/17 20:59 Last Admin: 05/19/17 20:52 Dose: 5 mg Gabapentin (Neurontin) 100 mg PO HS MAYCO Stop: 07/11/17 20:59 Last Admin: 05/19/17 20:52 Dose: 100 mg Lactobacillus Rhamnosus (Culturelle) 1 each PO DAILY MAYCO Stop: 07/12/17 08:59 Last Admin: 05/20/17 08:30 Dose: 1 each Lorazepam (Ativan) 1 mg PO Q6H PRN; Protocol PRN Reason: Anxiety/Agitation Stop: 07/10/17 21:29 Magnesium Hydroxide (Milk Of Magnesia) 30 ml PO HS PRN PRN Reason: Constipation Stop: 07/10/17 21:29 Magnesium Oxide (Mag-Oxide) 400 mg PO BID MAYCO Stop: 07/11/17 16:59 Last Admin: 05/20/17 17:15 Dose: 400 mg Rivaroxaban (Xarelto) 20 mg PO DAILY MAYCO Stop: 07/12/17 08:59 Last Admin: 05/20/17 08:30 Dose: 20 mg Zolpidem Tartrate (Ambien) 5 mg PO HS PRN PRN Reason: Insomnia Stop: 07/10/17 21:29 Last Admin: 05/17/17 20:36 Dose: 5 mg General: demented HEENT: NC/AT, PERRLA, EOMI, anicteric sclerae, throat clear Neck: Supple, No JVD, No thyromegaly, +2 carotid pulse wo bruit, No LAD Lungs: CTAB Cardiovascular: RRR, Normal S1, Normal S2, without murmur Abdomen: soft, non-tender, tender, thin Extremities: clear Neurological: no change Internal Medicine Assmt/Plan - Assessment Assessment: 1.HTN 2.DVT OF LOWER EXTRE. 3.PERIPHERAL NEUROPATHY OF LOWER EXTRE. 4.DEMENTIA. - Plan Plan: CONTINUE ON CURRENT MEDICATION AND DIET. Nutritional Asmnt/Malnutr-PDOC - Dietary Evaluation Malnutrition Findings (Please click <Entered> for more info): Nutritional Asmnt/Malnutrition Start: 05/15/17 17: 50 Text: Status: Complete Freq: Document 05/15/17 17:50 MYRANDA (Rec: 05/15/17 18:08 GSARMANI [email or web address]) Nutritional Asmnt/Malnutrition Patient General Information Nutritional Screening Moderate Risk Screening Diagnosis Dementia with behavioral disturbances, anxiety Pertinent Medical Hx/Surgical Hx Dementia, HTN, GERD, neuropathy, DVT Subjective Information 81 year old female from SNF. No known allergies on EMR, pt report allergies to shellfish. Pt was very talkaive, goes off topic, slight forgetfulness noted, however able to provide basic nutrition hx. Pt confirmed with bond writer allergies to shellfish only, hx of allergic reaction rushed to hospital and receievd a shot. Pt stated no allergies to anything else , likes salmon, tuna... etc. FNS notified and food preferences noted. No severe muscle fat wasting. No difficulties chewing/ swallowing. Pt report UBW 190lb many years ago. Pt report "wonderful appetite" and food has been "excellent." Pt also appeared health concious, requested for additional . Dequan packets and was able to explain purpose/benefit. Avg PO intake 100% of meals since adm, meeting nutritinoal needs. Current Diet Order/ Nutrition Support Regular, SANJAY Pertinent Medications Kassylle, MOM, Mag-Oxide Pertinent Labs Reviewed. Nutritional Hx/Data Height 1.68 m Height (Calculated Centimeters) 167.6 Current Weight (lbs) 73.845 kg Weight (Calculated Kilograms) 73.8 Weight (Calculated Grams) 71860.8 [place] Body Weight 130 Recent Weight Change No Weight Status Overweight GI Symptoms Food Allergies Yes Cultural/Ethnic/Taoism Belief Allergies to shellfish. Pt with preference for extra Mrs. Dash packets, all other fish, tea, hot cocoa, apple juice. Dislikes coffee, mashed potato with gravy. Usual diet at home [place]: regular, SANJAY Skin Integrity/Comment: Perico Herbert. Bruises, discolor extremities. Current %PO Good (75-100%) Estimated Nutritional Goals BEE in Kcals: Using Current wt Calories/Kcals/Kg CBW 162.8lb/74kg Kcals Calculated 1850-2220kcal (25-30kcal/kg) Protein: Using Current wt Protein Calculated 74g (1g/kg) Fluid: ml 1850-2220ml (1ml/kcal) Nutritional Problem 1. Problem Problem No nutritional problem at this time. Intervention/Recommendation Comments 1. Continue with current diet order. Avg PO intake is adequate. Pt's food preferences noted, FNS notified. 2. Pt report food allergies to shellfish only, FNS notified, documented under diet order. Expected Outcomes/Goals Expected Outcomes/Goals 1. PO intake continue to meet at least 75% of estimated nutritinoal needs.
--- NOTE | 2017-05-21 02:14 | Progress Notes ---
DATE: 05/20/[address] Pollock. Case was discussed with staff of the patient, reviewed the records. The patient continues to be demented, confused, impulsive, unpredictable, unable to participate in a meaningful conversation. Continues to have poor insight. Unable to make safe plan for self-care. No side effects with the medication, no sedation, no nausea, no extrapyramidal symptoms. We will continue to work with the patient in group therapy, milieu therapy, and adjust medication as needed. JOB# [id number]
[2017-05-21] MEDS: Lactobacillus Rhamnosus 10 Billion CFU Capsule PO SCH (09:13)
[2017-05-21] MEDS: Menthol/Zinc Oxide Oint 113gm Tube TP SCH (18:58)
--- NOTE | 2017-05-21 19:12 | Internal Medicine Prog Note ---
Internal Medicine Subjective - Subjective Service Date: 05/21/17 Patient seen and examined:: with staff (SHE HAS REDNESS AROUND THE RECTAL AREA.) Patient is:: awake, robyn chair, talking Patient Complaints of:: itching (SHE HAS ITCHING AROUND RECTAL AREA.) Per staff patient has:: no adverse event Internal Medicine Objective - Results Result Diagrams: 05/11/17 16:25 05/11/17 16:25 Recent Labs: Laboratory Last Values WBC 8.2 Th/cmm (4.8-10.8) 05/11/17 16:25 RBC 3.74 Mil/cmm (3.80-5.20) L 05/11/17 16:25 Hgb 11.7 gm/dL (12-16) L 05/11/17 16:25 Hct 34.0 % (41.0-60) L 05/11/17 16:25 MCV 91.0 fl (81-100) 05/11/17 16:25 MCH 31.2 pg (27.0-31.0) H 05/11/17 16:25 MCHC Differential 34.3 pg (28.0-36.0) 05/11/17 16:25 RDW 13.9 % (11.5-20.0) 05/11/17 16:25 Plt Count 178 Th/cmm (150-400) 05/11/17 16:25 MPV 7.8 fl 05/11/17 16:25 Neutrophils (Manual) 47 % (40-80) 05/11/17 16:25 Lymphocytes 41 % (20-50) 05/11/17 16:25 Monocytes 11 % (2-10) H 05/11/17 16:25 Basophils 1 % (0-3) 05/11/17 16:25 Platelet Estimate ADEQUATE (NORMAL) 05/11/17 16:25 PT 9.7 SECONDS (9.5-11.5) 05/11/17 16:25 INR 0.93 (0.5-1.4) 05/11/17 16:25 PTT (Actin FS) 25.4 SECONDS (26.0-38.0) L 05/11/17 16:25 Sodium 138 mEq/L (136-145) 05/11/17 16:25 Potassium 4.4 mEq/L (3.5-5.1) 05/11/17 16:25 Chloride 106 mEq/L (98-107) 05/11/17 16:25 Carbon Dioxide 22.9 mEq/L (21.0-31.0) 05/11/17 16:25 Anion Gap 13.5 (7.0-16.0) 05/11/17 16:25 BUN 28 mg/dL (7-25) H 05/11/17 16:25 Creatinine 1.1 mg/dL (0.6-1.2) 05/11/17 16:25 Est GFR ( Amer) TNP 05/11/17 16:25 Est GFR (Non-Af Amer) TNP 05/11/17 16:25 BUN/Creatinine Ratio 25.5 05/11/17 16:25 Glucose 102 mg/dL (70-105) 05/11/17 16:25 Calcium 9.9 mg/dL (8.6-10.3) 05/11/17 16:25 Total Bilirubin 0.5 mg/dL (0.3-1.0) 05/11/17 16:25 AST 21 U/L (13-39) 05/11/17 16:25 ALT 13 U/L (7-52) 05/11/17 16:25 Alkaline Phosphatase 72 U/L (34-104) 05/11/17 16:25 Troponin I 0.02 ng/mL (0.01-0.05) 05/11/17 16:25 B-Natriuretic Peptide 68.8 pg/mL (5.0-100.0) 05/11/17 16:25 Total Protein 8.2 gm/dL (6.0-8.3) 05/11/17 16:25 Albumin 4.5 gm/dL (3.7-5.3) 05/11/17 16:25 Globulin 3.7 gm/dL 05/11/17 16:25 Albumin/Globulin Ratio 1.2 (1.0-1.8) 05/11/17 16:25 Triglycerides 85 mg/dL (<150) 05/11/17 16:25 Cholesterol 216 mg/dL (<200) H 05/11/17 16:25 LDL Cholesterol Direct 139 mg/dL (75-193) 05/11/17 16:25 HDL Cholesterol 71 mg/dL (23-92) 05/11/17 16:25 TSH 2.96 uIU/ml (0.34-5.60) 05/11/17 16:25 Urine Source CLEAN C 05/14/17 16:10 Urine Color STRAW 05/14/17 16:10 Urine Clarity CLEAR (CLEAR) 05/14/17 16:10 Urine pH 6.0 (4.6 - 8.0) 05/14/17 16:10 Ur Specific [place] <= 1.005 (1.005-1.030) 05/14/17 16:10 Urine Protein NEGATIVE mg/dL (NEGATIVE) 05/14/17 16:10 Urine Glucose (UA) NEGATIVE mg/dL (NEGATIVE) 05/14/17 16:10 Urine Ketones NEGATIVE mg/dL (NEGATIVE) 05/14/17 16:10 Urine Blood TRACE (NEGATIVE) 05/14/17 16:10 Urine Nitrate NEGATIVE (NEGATIVE) 05/14/17 16:10 Urine Bilirubin NEGATIVE (NEGATIVE) 05/14/17 16:10 Urine Urobilinogen 0.2 E.U./dL (0.2 - 1.0) 05/14/17 16:10 Ur Leukocyte Esterase NEGATIVE (NEGATIVE) 05/14/17 16:10 Urine RBC 0-2 /hpf (0-5) 05/14/17 16:10 Urine WBC 0-2 /hpf (0-5) 05/14/17 16:10 Ur Epithelial Cells NONE SEEN /lpf (FEW) 05/14/17 16:10 Urine Bacteria NONE SEEN /hpf (NONE SEEN) 05/14/17 16:10 RPR NONREACTIVE (NONREACTIVE) 05/11/17 16:25 - Physical Exam Vitals and I&O: Vital Signs Temp 98.1 F 05/21/17 17:12 Pulse 64 05/21/17 17:12 Resp 20 05/21/17 17:12 BP 111/45 05/21/17 17:12 Pulse Ox 97 05/21/17 17:12 Intake & Output 05/21/17 05/21/17 05/22/17 06:59 18:59 06:59 Intake Total 180 1000 Balance 180 1000 Intake: Oral 180 1000 Other: # Voids 3 5 # Bowel Movements 0 2 Stool Characteristics Soft Formed Active Medications: Current Medications Acetaminophen (Tylenol) 650 mg PO Q6H PRN PRN Reason: Mild Pain/Headache/T above 101 Stop: 07/10/17 21:29 Last Admin: 05/13/17 15:22 Dose: 650 mg Amlodipine Besylate (Norvasc) 2.5 mg PO DAILY MAYCO Stop: 07/12/17 08:59 Last Admin: 05/21/17 09:14 Dose: 2.5 mg Aripiprazole (Abilify) 15 mg PO DAILY MAYCO PRN Reason: Protocol Stop: 07/17/17 06:23 Last Admin: 05/21/17 09:14 Dose: 15 mg Calamine/Phenol (Calmoseptine) 1 appl TP BID MAYCO Stop: 07/20/17 16:59 Last Admin: 05/21/17 18:58 Dose: Not Given Donepezil HCl (Aricept) 5 mg PO HS MAYCO Stop: 07/11/17 20:59 Last Admin: 05/20/17 21:35 Dose: 5 mg Gabapentin (Neurontin) 100 mg PO HS MAYCO Stop: 07/11/17 20:59 Last Admin: 05/20/17 21:35 Dose: 100 mg Lactobacillus Rhamnosus (Culturelle) 1 each PO DAILY MAYCO Stop: 07/12/17 08:59 Last Admin: 05/21/17 09:13 Dose: 1 each Lorazepam (Ativan) 1 mg PO Q6H PRN; Protocol PRN Reason: Anxiety/Agitation Stop: 07/10/17 21:29 Magnesium Hydroxide (Milk Of Magnesia) 30 ml PO HS PRN PRN Reason: Constipation Stop: 07/10/17 21:29 Magnesium Oxide (Mag-Oxide) 400 mg PO BID MAYCO Stop: 07/11/17 16:59 Last Admin: 05/21/17 16:43 Dose: 400 mg Zolpidem Tartrate (Ambien) 5 mg PO HS PRN PRN Reason: Insomnia Stop: 07/10/17 21:29 Last Admin: 05/17/17 20:36 Dose: 5 mg General: demented HEENT: NC/AT, PERRLA, EOMI, anicteric sclerae, throat clear Neck: Supple, No JVD, No thyromegaly, +2 carotid pulse wo bruit, No LAD Lungs: CTAB Cardiovascular: RRR, Normal S1, Normal S2, without murmur Abdomen: soft, non-tender, tender, thin Extremities: clear Neurological: no change Internal Medicine Assmt/Plan - Assessment Assessment: 1.HTN 2.DVT OF LOWER EXTRE. 3.PERIPHERAL NEUROPATHY OF LOWER EXTRE. 4.DEMENTIA. 5.ITCHING AROUND RECTAL AREA. - Plan Plan: CONTINUE ON CURRENT MEDICATION AND DIET.CALMOSEPTIN CREAM TO BE APPLIED TO RECTAL SKIN BID. Nutritional Asmnt/Malnutr-PDOC - Dietary Evaluation Malnutrition Findings (Please click <Entered> for more info): Nutritional Asmnt/Malnutrition Start: 05/15/17 17: 50 Text: Status: Complete Freq: Document 05/15/17 17:50 GSUN (Rec: 05/15/17 18:08 GSUN [id number]) Nutritional Asmnt/Malnutrition Patient General Information Nutritional Screening Moderate Risk Screening Diagnosis Dementia with behavioral disturbances, anxiety Pertinent Medical Hx/Surgical Hx Dementia, HTN, GERD, neuropathy, DVT Subjective Information 81 year old female from SNF. No known allergies on EMR, pt report allergies to shellfish. Pt was very talkaive, goes off topic, slight forgetfulness noted, however able to provide basic nutrition hx. Pt confirmed with insurance underwriter allergies to shellfish only, hx of allergic reaction rushed to hospital and receievd a shot. Pt stated no allergies to anything else , likes salmon, tuna... etc. FNS notified and food preferences noted. No severe muscle fat wasting. No difficulties chewing/ swallowing. Pt report UBW 190lb many years ago. Pt report "wonderful appetite" and food has been "excellent." Pt also appeared health concious, requested for additional Mrs. Baires packets and was able to explain purpose/benefit. Avg PO intake 100% of meals since adm, meeting nutritinoal needs. Current Diet Order/ Nutrition Support Regular, SANJAY Pertinent Medications [place], MOM, Mag-Oxide Pertinent Labs Reviewed. Nutritional Hx/Data Height 1.68 m Height (Calculated Centimeters) 167.6 Current Weight (lbs) 73.845 kg Weight (Calculated Kilograms) 73.8 Weight (Calculated Grams) 59577.8 [place] Body Weight 130 Recent Weight Change No Weight Status Overweight GI Symptoms Food Allergies Yes Cultural/Ethnic/[employer] Belief Allergies to shellfish. Pt with preference for extra Mrs. Baires packets, all other fish, tea, hot cocoa, apple juice. Dislikes coffee, mashed potato with gravy. Usual diet at home [place]: regular, SANJAY Skin Integrity/Comment: [place] 17. Bruises, discolor extremities. Current %PO Good (75-100%) Estimated Nutritional Goals BEE in Kcals: Using Current wt Calories/Kcals/Kg CBW 162.8lb/74kg Kcals Calculated 1850-2220kcal (25-30kcal/kg) Protein: Using Current wt Protein Calculated 74g (1g/kg) Fluid: ml 1850-2220ml (1ml/kcal) Nutritional Problem 1. Problem Problem No nutritional problem at this time. Intervention/Recommendation Comments 1. Continue with current diet order. Avg PO intake is adequate. Pt's food preferences noted, FNS notified. 2. Pt report food allergies to shellfish only, FNS notified, documented under diet order. Expected Outcomes/Goals Expected Outcomes/Goals 1. PO intake continue to meet at least 75% of estimated nutritinoal needs.
--- NOTE | 2017-05-21 22:17 | Progress Notes ---
DATE: 05/21/2017 SUBJECTIVE: Chart reviewed and the patient interviewed. Also discussed the patient's condition with the staff and reviewed records and labs. The patient is still confused and hypertalkative. She also is still having thought processes that are circumstantial and tangential. She also is still unable to provide any safe plan for self-care. The patient also still needs lots of redirections. Otherwise, the patient is compliant with taking her medications with no side effects of medications. ASSESSMENT: The patient is still manicky and psychotic. TREATMENT PLAN: Continue monitoring her behavior and her condition closely. Also, continue to follow up closely. JOB# [id number]
[2017-05-22] MEDS: Lactobacillus Rhamnosus 10 Billion CFU Capsule PO SCH (09:59)
[2017-05-22] MEDS: Menthol/Zinc Oxide Oint 113gm Tube TP SCH ×2 (10:01→17:01)
--- NOTE | 2017-05-22 11:58 | Internal Medicine Prog Note ---
Internal Medicine Subjective - Subjective Service Date: 05/22/17 Patient seen and examined:: without staff Patient is:: awake, robyn chair, talking Patient Complaints of:: itching (SHE HAS ITCHING AROUND RECTAL AREA.) Per staff patient has:: no adverse event Internal Medicine Objective - Results Result Diagrams: 05/11/17 16:25 05/11/17 16:25 Recent Labs: Laboratory Last Values WBC 8.2 Th/cmm (4.8-10.8) 05/11/17 16:25 RBC 3.74 Mil/cmm (3.80-5.20) L 05/11/17 16:25 Hgb 11.7 gm/dL (12-16) L 05/11/17 16:25 Hct 34.0 % (41.0-60) L 05/11/17 16:25 MCV 91.0 fl (81-100) 05/11/17 16:25 MCH 31.2 pg (27.0-31.0) H 05/11/17 16:25 MCHC Differential 34.3 pg (28.0-36.0) 05/11/17 16:25 RDW 13.9 % (11.5-20.0) 05/11/17 16:25 Plt Count 178 Th/cmm (150-400) 05/11/17 16:25 MPV 7.8 fl 05/11/17 16:25 Neutrophils (Manual) 47 % (40-80) 05/11/17 16:25 Lymphocytes 41 % (20-50) 05/11/17 16:25 Monocytes 11 % (2-10) H 05/11/17 16:25 Basophils 1 % (0-3) 05/11/17 16:25 Platelet Estimate ADEQUATE (NORMAL) 05/11/17 16:25 PT 9.7 SECONDS (9.5-11.5) 05/11/17 16:25 INR 0.93 (0.5-1.4) 05/11/17 16:25 PTT (Actin FS) 25.4 SECONDS (26.0-38.0) L 05/11/17 16:25 Sodium 138 mEq/L (136-145) 05/11/17 16:25 Potassium 4.4 mEq/L (3.5-5.1) 05/11/17 16:25 Chloride 106 mEq/L (98-107) 05/11/17 16:25 Carbon Dioxide 22.9 mEq/L (21.0-31.0) 05/11/17 16:25 Anion Gap 13.5 (7.0-16.0) 05/11/17 16:25 BUN 28 mg/dL (7-25) H 05/11/17 16:25 Creatinine 1.1 mg/dL (0.6-1.2) 05/11/17 16:25 Est GFR ( Amer) TNP 05/11/17 16:25 Est GFR (Non-Af Amer) TNP 05/11/17 16:25 BUN/Creatinine Ratio 25.5 05/11/17 16:25 Glucose 102 mg/dL (70-105) 05/11/17 16:25 Calcium 9.9 mg/dL (8.6-10.3) 05/11/17 16:25 Total Bilirubin 0.5 mg/dL (0.3-1.0) 05/11/17 16:25 AST 21 U/L (13-39) 05/11/17 16:25 ALT 13 U/L (7-52) 05/11/17 16:25 Alkaline Phosphatase 72 U/L (34-104) 05/11/17 16:25 Troponin I 0.02 ng/mL (0.01-0.05) 05/11/17 16:25 B-Natriuretic Peptide 68.8 pg/mL (5.0-100.0) 05/11/17 16:25 Total Protein 8.2 gm/dL (6.0-8.3) 05/11/17 16:25 Albumin 4.5 gm/dL (3.7-5.3) 05/11/17 16:25 Globulin 3.7 gm/dL 05/11/17 16:25 Albumin/Globulin Ratio 1.2 (1.0-1.8) 05/11/17 16:25 Triglycerides 85 mg/dL (<150) 05/11/17 16:25 Cholesterol 216 mg/dL (<200) H 05/11/17 16:25 LDL Cholesterol Direct 139 mg/dL (75-193) 05/11/17 16:25 HDL Cholesterol 71 mg/dL (23-92) 05/11/17 16:25 TSH 2.96 uIU/ml (0.34-5.60) 05/11/17 16:25 Urine Source CLEAN C 05/14/17 16:10 Urine Color STRAW 05/14/17 16:10 Urine Clarity CLEAR (CLEAR) 05/14/17 16:10 Urine pH 6.0 (4.6 - 8.0) 05/14/17 16:10 Ur Specific [place] <= 1.005 (1.005-1.030) 05/14/17 16:10 Urine Protein NEGATIVE mg/dL (NEGATIVE) 05/14/17 16:10 Urine Glucose (UA) NEGATIVE mg/dL (NEGATIVE) 05/14/17 16:10 Urine Ketones NEGATIVE mg/dL (NEGATIVE) 05/14/17 16:10 Urine Blood TRACE (NEGATIVE) 05/14/17 16:10 Urine Nitrate NEGATIVE (NEGATIVE) 05/14/17 16:10 Urine Bilirubin NEGATIVE (NEGATIVE) 05/14/17 16:10 Urine Urobilinogen 0.2 E.U./dL (0.2 - 1.0) 05/14/17 16:10 Ur Leukocyte Esterase NEGATIVE (NEGATIVE) 05/14/17 16:10 Urine RBC 0-2 /hpf (0-5) 05/14/17 16:10 Urine WBC 0-2 /hpf (0-5) 05/14/17 16:10 Ur Epithelial Cells NONE SEEN /lpf (FEW) 05/14/17 16:10 Urine Bacteria NONE SEEN /hpf (NONE SEEN) 05/14/17 16:10 RPR NONREACTIVE (NONREACTIVE) 05/11/17 16:25 - Physical Exam Vitals and I&O: Vital Signs Temp 98.3 F 05/22/17 06:07 Pulse 57 05/22/17 08:43 Resp 20 05/22/17 06:07 BP 123/47 05/22/17 08:43 Pulse Ox 100 05/22/17 06:07 Intake & Output 05/21/17 05/22/17 05/22/17 18:59 06:59 18:59 Intake Total 1000 240 Balance 1000 240 Intake: Oral 1000 240 Other: # Voids 5 2 # Bowel Movements 2 0 Stool Characteristics Soft Formed Active Medications: Current Medications Acetaminophen (Tylenol) 650 mg PO Q6H PRN PRN Reason: Mild Pain/Headache/T above 101 Stop: 07/10/17 21:29 Last Admin: 05/22/17 09:59 Dose: 650 mg Amlodipine Besylate (Norvasc) 2.5 mg PO DAILY MAYCO Stop: 07/12/17 08:59 Last Admin: 05/22/17 08:43 Dose: 2.5 mg Aripiprazole (Abilify) 15 mg PO DAILY MAYCO PRN Reason: Protocol Stop: 07/17/17 06:23 Last Admin: 05/22/17 08:42 Dose: 15 mg Calamine/Phenol (Calmoseptine) 1 appl TP BID MAYCO Stop: 07/20/17 16:59 Last Admin: 05/22/17 10:01 Dose: 1 appl Donepezil HCl (Aricept) 5 mg PO HS MAYCO Stop: 07/11/17 20:59 Last Admin: 05/21/17 20:07 Dose: 5 mg Gabapentin (Neurontin) 100 mg PO HS MAYCO Stop: 07/11/17 20:59 Last Admin: 05/21/17 20:07 Dose: 100 mg Lactobacillus Rhamnosus (Culturelle) 1 each PO DAILY MAYCO Stop: 07/12/17 08:59 Last Admin: 05/22/17 09:59 Dose: 1 each Lorazepam (Ativan) 1 mg PO Q6H PRN; Protocol PRN Reason: Anxiety/Agitation Stop: 07/10/17 21:29 Magnesium Hydroxide (Milk Of Magnesia) 30 ml PO HS PRN PRN Reason: Constipation Stop: 07/10/17 21:29 Magnesium Oxide (Mag-Oxide) 400 mg PO BID MAYCO Stop: 07/11/17 16:59 Last Admin: 05/22/17 08:46 Dose: 400 mg Zolpidem Tartrate (Ambien) 5 mg PO HS PRN PRN Reason: Insomnia Stop: 07/10/17 21:29 Last Admin: 05/21/17 20:07 Dose: 5 mg General: demented HEENT: NC/AT, PERRLA, EOMI, anicteric sclerae, throat clear Neck: Supple, No JVD, No thyromegaly, +2 carotid pulse wo bruit, No LAD Lungs: CTAB Cardiovascular: RRR, Normal S1, Normal S2, without murmur Abdomen: soft, non-tender, tender, thin Extremities: clear Neurological: no change Internal Medicine Assmt/Plan - Assessment Assessment: 1.HTN 2.DVT OF LOWER EXTRE. 3.PERIPHERAL NEUROPATHY OF LOWER EXTRE. 4.DEMENTIA. 5.ITCHING AROUND RECTAL AREA. - Plan Plan: CONTINUE ON CURRENT MEDICATION AND DIET. Nutritional Asmnt/Malnutr-PDOC - Dietary Evaluation Malnutrition Findings (Please click <Entered> for more info): Nutritional Asmnt/Malnutrition Start: 05/15/17 17: 50 Text: Status: Complete Freq: Document 05/15/17 17:50 GSUN (Rec: 05/15/17 18:08 GSUN [id number]) Nutritional Asmnt/Malnutrition Patient General Information Nutritional Screening Moderate Risk Screening Diagnosis Dementia with behavioral disturbances, anxiety Pertinent Medical Hx/Surgical Hx Dementia, HTN, GERD, neuropathy, DVT Subjective Information 81 year old female from SNF. No known allergies on EMR, pt report allergies to shellfish. Pt was very talkaive, goes off topic, slight forgetfulness noted, however able to provide basic nutrition hx. Pt confirmed with typewriter operator automatic allergies to shellfish only, hx of allergic reaction rushed to hospital and receievd a shot. Pt stated no allergies to anything else , likes salmon, tuna... etc. FNS notified and food preferences noted. No severe muscle fat wasting. No difficulties chewing/ swallowing. Pt report UBW 190lb many years ago. Pt report "wonderful appetite" and food has been "excellent." Pt also appeared health concious, requested for additional Mrs. Baires packets and was able to explain purpose/benefit. Avg PO intake 100% of meals since adm, meeting nutritinoal needs. Current Diet Order/ Nutrition Support Regular, SANJAY Pertinent Medications [place], MOM, Mag-Oxide Pertinent Labs Reviewed. Nutritional Hx/Data Height 1.68 m Height (Calculated Centimeters) 167.6 Current Weight (lbs) 73.845 kg Weight (Calculated Kilograms) 73.8 Weight (Calculated Grams) 95582.8 [place] Body Weight 130 Recent Weight Change No Weight Status Overweight GI Symptoms Food Allergies Yes Cultural/Ethnic/[employer] Belief Allergies to shellfish. Pt with preference for extra Mrs. Baires packets, all other fish, tea, hot cocoa, apple juice. Dislikes coffee, mashed potato with gravy. Usual diet at home [place]: regular, SANJAY Skin Integrity/Comment: [place] 17. Bruises, discolor extremities. Current %PO Good (75-100%) Estimated Nutritional Goals BEE in Kcals: Using Current wt Calories/Kcals/Kg CBW 162.8lb/74kg Kcals Calculated 1850-2220kcal (25-30kcal/kg) Protein: Using Current wt Protein Calculated 74g (1g/kg) Fluid: ml 1850-2220ml (1ml/kcal) Nutritional Problem 1. Problem Problem No nutritional problem at this time. Intervention/Recommendation Comments 1. Continue with current diet order. Avg PO intake is adequate. Pt's food preferences noted, FNS notified. 2. Pt report food allergies to shellfish only, FNS notified, documented under diet order. Expected Outcomes/Goals Expected Outcomes/Goals 1. PO intake continue to meet at least 75% of estimated nutritinoal needs.
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
[2017-05-23] MEDS: Lactobacillus Rhamnosus 10 Billion CFU Capsule PO SCH (09:06)
--- NOTE | 2017-05-23 22:30 | Internal Medicine Prog Note ---
Internal Medicine Subjective - Subjective Service Date: 05/23/17 Patient seen and examined:: without staff Patient is:: awake, robyn chair, talking Patient Complaints of:: itching (SHE HAS ITCHING AROUND RECTAL AREA.) Per staff patient has:: no adverse event Internal Medicine Objective - Results Result Diagrams: 05/11/17 16:25 05/11/17 16:25 Recent Labs: Laboratory Last Values WBC 8.2 Th/cmm (4.8-10.8) 05/11/17 16:25 RBC 3.74 Mil/cmm (3.80-5.20) L 05/11/17 16:25 Hgb 11.7 gm/dL (12-16) L 05/11/17 16:25 Hct 34.0 % (41.0-60) L 05/11/17 16:25 MCV 91.0 fl (81-100) 05/11/17 16:25 MCH 31.2 pg (27.0-31.0) H 05/11/17 16:25 MCHC Differential 34.3 pg (28.0-36.0) 05/11/17 16:25 RDW 13.9 % (11.5-20.0) 05/11/17 16:25 Plt Count 178 Th/cmm (150-400) 05/11/17 16:25 MPV 7.8 fl 05/11/17 16:25 Neutrophils (Manual) 47 % (40-80) 05/11/17 16:25 Lymphocytes 41 % (20-50) 05/11/17 16:25 Monocytes 11 % (2-10) H 05/11/17 16:25 Basophils 1 % (0-3) 05/11/17 16:25 Platelet Estimate ADEQUATE (NORMAL) 05/11/17 16:25 PT 9.7 SECONDS (9.5-11.5) 05/11/17 16:25 INR 0.93 (0.5-1.4) 05/11/17 16:25 PTT (Actin FS) 25.4 SECONDS (26.0-38.0) L 05/11/17 16:25 Sodium 138 mEq/L (136-145) 05/11/17 16:25 Potassium 4.4 mEq/L (3.5-5.1) 05/11/17 16:25 Chloride 106 mEq/L (98-107) 05/11/17 16:25 Carbon Dioxide 22.9 mEq/L (21.0-31.0) 05/11/17 16:25 Anion Gap 13.5 (7.0-16.0) 05/11/17 16:25 BUN 28 mg/dL (7-25) H 05/11/17 16:25 Creatinine 1.1 mg/dL (0.6-1.2) 05/11/17 16:25 Est GFR ( Amer) TNP 05/11/17 16:25 Est GFR (Non-Af Amer) TNP 05/11/17 16:25 BUN/Creatinine Ratio 25.5 05/11/17 16:25 Glucose 102 mg/dL (70-105) 05/11/17 16:25 Calcium 9.9 mg/dL (8.6-10.3) 05/11/17 16:25 Total Bilirubin 0.5 mg/dL (0.3-1.0) 05/11/17 16:25 AST 21 U/L (13-39) 05/11/17 16:25 ALT 13 U/L (7-52) 05/11/17 16:25 Alkaline Phosphatase 72 U/L (34-104) 05/11/17 16:25 Troponin I 0.02 ng/mL (0.01-0.05) 05/11/17 16:25 B-Natriuretic Peptide 68.8 pg/mL (5.0-100.0) 05/11/17 16:25 Total Protein 8.2 gm/dL (6.0-8.3) 05/11/17 16:25 Albumin 4.5 gm/dL (3.7-5.3) 05/11/17 16:25 Globulin 3.7 gm/dL 05/11/17 16:25 Albumin/Globulin Ratio 1.2 (1.0-1.8) 05/11/17 16:25 Triglycerides 85 mg/dL (<150) 05/11/17 16:25 Cholesterol 216 mg/dL (<200) H 05/11/17 16:25 LDL Cholesterol Direct 139 mg/dL (75-193) 05/11/17 16:25 HDL Cholesterol 71 mg/dL (23-92) 05/11/17 16:25 TSH 2.96 uIU/ml (0.34-5.60) 05/11/17 16:25 Urine Source CLEAN C 05/14/17 16:10 Urine Color STRAW 05/14/17 16:10 Urine Clarity CLEAR (CLEAR) 05/14/17 16:10 Urine pH 6.0 (4.6 - 8.0) 05/14/17 16:10 Ur Specific [place] <= 1.005 (1.005-1.030) 05/14/17 16:10 Urine Protein NEGATIVE mg/dL (NEGATIVE) 05/14/17 16:10 Urine Glucose (UA) NEGATIVE mg/dL (NEGATIVE) 05/14/17 16:10 Urine Ketones NEGATIVE mg/dL (NEGATIVE) 05/14/17 16:10 Urine Blood TRACE (NEGATIVE) 05/14/17 16:10 Urine Nitrate NEGATIVE (NEGATIVE) 05/14/17 16:10 Urine Bilirubin NEGATIVE (NEGATIVE) 05/14/17 16:10 Urine Urobilinogen 0.2 E.U./dL (0.2 - 1.0) 05/14/17 16:10 Ur Leukocyte Esterase NEGATIVE (NEGATIVE) 05/14/17 16:10 Urine RBC 0-2 /hpf (0-5) 05/14/17 16:10 Urine WBC 0-2 /hpf (0-5) 05/14/17 16:10 Ur Epithelial Cells NONE SEEN /lpf (FEW) 05/14/17 16:10 Urine Bacteria NONE SEEN /hpf (NONE SEEN) 05/14/17 16:10 RPR NONREACTIVE (NONREACTIVE) 05/11/17 16:25 - Physical Exam Vitals and I&O: Vital Signs Temp 97.8 F 05/23/17 14:00 Pulse 72 05/23/17 14:00 Resp 20 05/23/17 14:00 BP 118/69 05/23/17 14:00 Pulse Ox 97 05/23/17 14:00 Intake & Output 05/23/17 05/23/17 05/24/17 06:59 18:59 06:59 Intake Total 240 1600 Balance 240 1600 Intake: Oral 240 1600 Other: # Voids 3 5 # Bowel Movements 0 0 Active Medications: Current Medications Acetaminophen (Tylenol) 650 mg PO Q6H PRN PRN Reason: Mild Pain/Headache/T above 101 Stop: 07/10/17 21:29 Last Admin: 05/22/17 09:59 Dose: 650 mg Amlodipine Besylate (Norvasc) 2.5 mg PO DAILY [facility] Stop: 07/12/17 08:59 Last Admin: 05/23/17 09:06 Dose: 2.5 mg Aripiprazole (Abilify) 20 mg PO DAILY [facility] PRN Reason: Protocol Stop: 07/17/17 06:23 Last Admin: 05/23/17 09:06 Dose: 20 mg Calamine/Phenol (Calmoseptine) 1 appl TP BID [facility] Stop: 07/20/17 16:59 Last Admin: 05/22/17 17:01 Dose: 1 appl Donepezil HCl (Aricept) 5 mg PO HS [facility] Stop: 07/11/17 20:59 Last Admin: 05/23/17 21:16 Dose: 5 mg Gabapentin (Neurontin) 100 mg PO HS [facility] Stop: 07/11/17 20:59 Last Admin: 05/23/17 21:16 Dose: 100 mg Lorazepam (Ativan) 1 mg PO Q6H PRN; Protocol PRN Reason: Anxiety/Agitation Stop: 07/10/17 21:29 Magnesium Hydroxide (Milk Of Magnesia) 30 ml PO HS PRN PRN Reason: Constipation Stop: 07/10/17 21:29 Magnesium Oxide (Mag-Oxide) 400 mg PO BID [facility] Stop: 07/11/17 16:59 Last Admin: 05/23/17 17:34 Dose: Not Given Zolpidem Tartrate (Ambien) 5 mg PO HS PRN PRN Reason: Insomnia Stop: 07/10/17 21:29 Last Admin: 05/23/17 21:16 Dose: 5 mg General: demented HEENT: NC/AT, PERRLA, EOMI, anicteric sclerae, throat clear Neck: Supple, No JVD, No thyromegaly, +2 carotid pulse wo bruit, No LAD Lungs: CTAB Cardiovascular: RRR, Normal S1, Normal S2, without murmur Abdomen: soft, non-tender, tender, thin Extremities: clear Neurological: no change Internal Medicine Assmt/Plan - Assessment Assessment: 1.HTN 2.DVT OF LOWER EXTRE. 3.PERIPHERAL NEUROPATHY OF LOWER EXTRE. 4.DEMENTIA. - Plan Plan: CONTINUE ON CURRENT MEDICATION AND DIET. Nutritional Asmnt/Malnutr-PDOC - Dietary Evaluation Malnutrition Findings (Please click <Entered> for more info): Nutritional Asmnt/Malnutrition Start: 05/15/17 17: 50 Text: Status: Complete Freq: Document 05/15/17 17:50 MYRANDA (Rec: 05/15/17 18:08 GSARMANI [id number]) Nutritional Asmnt/Malnutrition Patient General Information Nutritional Screening Moderate Risk Screening Diagnosis Dementia with behavioral disturbances, anxiety Pertinent Medical Hx/Surgical Hx Dementia, HTN, GERD, neuropathy, DVT Subjective Information 81 year old female from SNF. No known allergies on EMR, pt report allergies to shellfish. Pt was very talkaive, goes off topic, slight forgetfulness noted, however able to provide basic nutrition hx. Pt confirmed with abstract writer allergies to shellfish only, hx of allergic reaction rushed to hospital and receievd a shot. Pt stated no allergies to anything else , likes salmon, tuna... etc. FNS notified and food preferences noted. No severe muscle fat wasting. No difficulties chewing/ swallowing. Pt report UBW 190lb many years ago. Pt report "wonderful appetite" and food has been "excellent." Pt also appeared health concious, requested for additional Mrs. Baires packets and was able to explain purpose/benefit. Avg PO intake 100% of meals since adm, meeting nutritinoal needs. Current Diet Order/ Nutrition Support Regular, SANJAY Pertinent Medications LASHAY [place], Mag-Oxide Pertinent Labs Reviewed. Nutritional Hx/Data Height 1.68 m Height (Calculated Centimeters) 167.6 Current Weight (lbs) 73.845 kg Weight (Calculated Kilograms) 73.8 Weight (Calculated Grams) 72037.8 [place] Body Weight 130 Recent Weight Change No Weight Status Overweight GI Symptoms Food Allergies Yes Cultural/Ethnic/Restoration Belief Allergies to shellfish. Pt with preference for extra Mrs. Baires packets, all other fish, tea, hot cocoa, apple juice. Dislikes coffee, mashed potato with gravy. Usual diet at home [place]: regular, SANJAY Skin Integrity/Comment: Perico 17. Bruises, discolor extremities. Current %PO Good (75-100%) Estimated Nutritional Goals BEE in Kcals: Using Current wt Calories/Kcals/Kg CBW 162.8lb/74kg Kcals Calculated 1850-2220kcal (25-30kcal/kg) Protein: Using Current wt Protein Calculated 74g (1g/kg) Fluid: ml 1850-2220ml (1ml/kcal) Nutritional Problem 1. Problem Problem No nutritional problem at this time. Intervention/Recommendation Comments 1. Continue with current diet order. Avg PO intake is adequate. Pt's food preferences noted, FNS notified. 2. Pt report food allergies to shellfish only, FNS notified, documented under diet order. Expected Outcomes/Goals Expected Outcomes/Goals 1. PO intake continue to meet at least 75% of estimated nutritinoal needs.
[2017-05-24] MEDS: Menthol/Zinc Oxide Oint 113gm Tube TP SCH ×2 (08:18→16:17)
--- NOTE | 2017-05-24 17:04 | Progress Notes ---
DATE: 05/24/2017 SUBJECTIVE: Chart reviewed and the patient interviewed. Also, discussed the patient's condition with the staff, reviewed records and labs. The patient continued to be severely irritable and severely agitated. The patient also basically trashed her room with papers and when I asked her about the reason for doing so, her answer was "I ____ on the floor and I was covering it with paper." She still seems to be forgetful and disorganized. Also, personal hygiene is still poor. She also is still easily agitated and easily irritable and hyperverbal. The patient also has difficulty expressing herself or carrying on coherent conversation and during interview, the patient has been repeating words and has been unable to provide any safe plan for self-care. ASSESSMENT: The patient is still agitated and is still psychotic. TREATMENT PLAN: Continue monitoring her behavior and her condition closely. Also, I increased the Abilify yesterday to 20 mg every day. No side effects. We will continue same dose and we will increase Aricept to 10 mg every day and we will continue to follow up her behavior and her condition closely. JOB# [id number]
--- NOTE | 2017-05-24 19:03 | Internal Medicine Prog Note ---
Internal Medicine Subjective - Subjective Service Date: 05/24/17 Patient seen and examined:: without staff Patient is:: awake, robyn chair, talking Patient Complaints of:: itching (SHE HAS ITCHING AROUND RECTAL AREA.) Per staff patient has:: no adverse event Internal Medicine Objective - Results Result Diagrams: 05/11/17 16:25 05/11/17 16:25 Recent Labs: Laboratory Last Values WBC 8.2 Th/cmm (4.8-10.8) 05/11/17 16:25 RBC 3.74 Mil/cmm (3.80-5.20) L 05/11/17 16:25 Hgb 11.7 gm/dL (12-16) L 05/11/17 16:25 Hct 34.0 % (41.0-60) L 05/11/17 16:25 MCV 91.0 fl (81-100) 05/11/17 16:25 MCH 31.2 pg (27.0-31.0) H 05/11/17 16:25 MCHC Differential 34.3 pg (28.0-36.0) 05/11/17 16:25 RDW 13.9 % (11.5-20.0) 05/11/17 16:25 Plt Count 178 Th/cmm (150-400) 05/11/17 16:25 MPV 7.8 fl 05/11/17 16:25 Neutrophils (Manual) 47 % (40-80) 05/11/17 16:25 Lymphocytes 41 % (20-50) 05/11/17 16:25 Monocytes 11 % (2-10) H 05/11/17 16:25 Basophils 1 % (0-3) 05/11/17 16:25 Platelet Estimate ADEQUATE (NORMAL) 05/11/17 16:25 PT 9.7 SECONDS (9.5-11.5) 05/11/17 16:25 INR 0.93 (0.5-1.4) 05/11/17 16:25 PTT (Actin FS) 25.4 SECONDS (26.0-38.0) L 05/11/17 16:25 Sodium 138 mEq/L (136-145) 05/11/17 16:25 Potassium 4.4 mEq/L (3.5-5.1) 05/11/17 16:25 Chloride 106 mEq/L (98-107) 05/11/17 16:25 Carbon Dioxide 22.9 mEq/L (21.0-31.0) 05/11/17 16:25 Anion Gap 13.5 (7.0-16.0) 05/11/17 16:25 BUN 28 mg/dL (7-25) H 05/11/17 16:25 Creatinine 1.1 mg/dL (0.6-1.2) 05/11/17 16:25 Est GFR ( Amer) TNP 05/11/17 16:25 Est GFR (Non-Af Amer) TNP 05/11/17 16:25 BUN/Creatinine Ratio 25.5 05/11/17 16:25 Glucose 102 mg/dL (70-105) 05/11/17 16:25 Calcium 9.9 mg/dL (8.6-10.3) 05/11/17 16:25 Total Bilirubin 0.5 mg/dL (0.3-1.0) 05/11/17 16:25 AST 21 U/L (13-39) 05/11/17 16:25 ALT 13 U/L (7-52) 05/11/17 16:25 Alkaline Phosphatase 72 U/L (34-104) 05/11/17 16:25 Troponin I 0.02 ng/mL (0.01-0.05) 05/11/17 16:25 B-Natriuretic Peptide 68.8 pg/mL (5.0-100.0) 05/11/17 16:25 Total Protein 8.2 gm/dL (6.0-8.3) 05/11/17 16:25 Albumin 4.5 gm/dL (3.7-5.3) 05/11/17 16:25 Globulin 3.7 gm/dL 05/11/17 16:25 Albumin/Globulin Ratio 1.2 (1.0-1.8) 05/11/17 16:25 Triglycerides 85 mg/dL (<150) 05/11/17 16:25 Cholesterol 216 mg/dL (<200) H 05/11/17 16:25 LDL Cholesterol Direct 139 mg/dL (75-193) 05/11/17 16:25 HDL Cholesterol 71 mg/dL (23-92) 05/11/17 16:25 TSH 2.96 uIU/ml (0.34-5.60) 05/11/17 16:25 Urine Source CLEAN C 05/14/17 16:10 Urine Color STRAW 05/14/17 16:10 Urine Clarity CLEAR (CLEAR) 05/14/17 16:10 Urine pH 6.0 (4.6 - 8.0) 05/14/17 16:10 Ur Specific [place] <= 1.005 (1.005-1.030) 05/14/17 16:10 Urine Protein NEGATIVE mg/dL (NEGATIVE) 05/14/17 16:10 Urine Glucose (UA) NEGATIVE mg/dL (NEGATIVE) 05/14/17 16:10 Urine Ketones NEGATIVE mg/dL (NEGATIVE) 05/14/17 16:10 Urine Blood TRACE (NEGATIVE) 05/14/17 16:10 Urine Nitrate NEGATIVE (NEGATIVE) 05/14/17 16:10 Urine Bilirubin NEGATIVE (NEGATIVE) 05/14/17 16:10 Urine Urobilinogen 0.2 E.U./dL (0.2 - 1.0) 05/14/17 16:10 Ur Leukocyte Esterase NEGATIVE (NEGATIVE) 05/14/17 16:10 Urine RBC 0-2 /hpf (0-5) 05/14/17 16:10 Urine WBC 0-2 /hpf (0-5) 05/14/17 16:10 Ur Epithelial Cells NONE SEEN /lpf (FEW) 05/14/17 16:10 Urine Bacteria NONE SEEN /hpf (NONE SEEN) 05/14/17 16:10 RPR NONREACTIVE (NONREACTIVE) 05/11/17 16:25 - Physical Exam Vitals and I&O: Vital Signs Temp 97.6 F 05/24/17 14:00 Pulse 65 05/24/17 14:00 Resp 21 05/24/17 14:00 BP 134/65 05/24/17 14:00 Pulse Ox 100 05/24/17 14:00 Intake & Output 05/24/17 05/24/17 05/25/17 06:59 18:59 06:59 Intake Total 120 2400 Balance 120 2400 Intake: Oral 120 2400 Other: # Voids 4 5 # Bowel Movements 3 Stool Characteristics Soft Brown Active Medications: Current Medications Acetaminophen (Tylenol) 650 mg PO Q6H PRN PRN Reason: Mild Pain/Headache/T above 101 Stop: 07/10/17 21:29 Last Admin: 05/24/17 13:00 Dose: 650 mg Amlodipine Besylate (Norvasc) 2.5 mg PO DAILY [facility] Stop: 07/12/17 08:59 Last Admin: 05/24/17 08:16 Dose: 2.5 mg Aripiprazole (Abilify) 20 mg PO DAILY [facility] PRN Reason: Protocol Stop: 07/17/17 06:23 Last Admin: 05/24/17 08:15 Dose: 20 mg Calamine/Phenol (Calmoseptine) 1 appl TP BID [facility] Stop: 07/20/17 16:59 Last Admin: 05/24/17 16:17 Dose: 1 appl Donepezil HCl (Aricept) 10 mg PO HS [facility] Stop: 07/23/17 06:11 Gabapentin (Neurontin) 100 mg PO HS [facility] Stop: 07/11/17 20:59 Last Admin: 05/23/17 21:16 Dose: 100 mg Lorazepam (Ativan) 1 mg PO Q6H PRN; Protocol PRN Reason: Anxiety/Agitation Stop: 07/10/17 21:29 Magnesium Hydroxide (Milk Of Magnesia) 30 ml PO HS PRN PRN Reason: Constipation Stop: 07/10/17 21:29 Magnesium Oxide (Mag-Oxide) 400 mg PO BID [facility] Stop: 07/11/17 16:59 Last Admin: 05/24/17 16:13 Dose: 400 mg Zolpidem Tartrate (Ambien) 5 mg PO HS PRN PRN Reason: Insomnia Stop: 07/10/17 21:29 Last Admin: 05/23/17 21:16 Dose: 5 mg General: demented HEENT: NC/AT, PERRLA, EOMI, anicteric sclerae, throat clear Neck: Supple, No JVD, No thyromegaly, +2 carotid pulse wo bruit, No LAD Lungs: CTAB Cardiovascular: RRR, Normal S1, Normal S2, without murmur Abdomen: soft, non-tender, tender, thin Extremities: clear Neurological: no change Internal Medicine Assmt/Plan - Assessment Assessment: 1.HTN 2.DVT OF LOWER EXTRE. 3.PERIPHERAL NEUROPATHY OF LOWER EXTRE. 4.DEMENTIA. - Plan Plan: CONTINUE ON CURRENT MEDICATION AND DIET. Nutritional Asmnt/Malnutr-PDOC - Dietary Evaluation Malnutrition Findings (Please click <Entered> for more info): Nutritional Asmnt/Malnutrition Start: 05/15/17 17: 50 Text: Status: Complete Freq: Document 05/15/17 17:50 MYRANDA (Rec: 05/15/17 18:08 GSARMANI [email or web address]) Nutritional Asmnt/Malnutrition Patient General Information Nutritional Screening Moderate Risk Screening Diagnosis Dementia with behavioral disturbances, anxiety Pertinent Medical Hx/Surgical Hx Dementia, HTN, GERD, neuropathy, DVT Subjective Information 81 year old female from SNF. No known allergies on EMR, pt report allergies to shellfish. Pt was very talkaive, goes off topic, slight forgetfulness noted, however able to provide basic nutrition hx. Pt confirmed with marketing writer allergies to shellfish only, hx of allergic reaction rushed to hospital and receievd a shot. Pt stated no allergies to anything else , likes salmon, tuna... etc. FNS notified and food preferences noted. No severe muscle fat wasting. No difficulties chewing/ swallowing. Pt report UBW 190lb many years ago. Pt report "wonderful appetite" and food has been "excellent." Pt also appeared health concious, requested for additional Mrs. Baires packets and was able to explain purpose/benefit. Avg PO intake 100% of meals since adm, meeting nutritinoal needs. Current Diet Order/ Nutrition Support Regular, SANJAY Pertinent Medications Ruby, MOM, Mag-Oxide Pertinent Labs Reviewed. Nutritional Hx/Data Height 1.68 m Height (Calculated Centimeters) 167.6 Current Weight (lbs) 73.845 kg Weight (Calculated Kilograms) 73.8 Weight (Calculated Grams) 81964.8 [place] Body Weight 130 Recent Weight Change No Weight Status Overweight GI Symptoms Food Allergies Yes Cultural/Ethnic/Sabianism Belief Allergies to shellfish. Pt with preference for extra Mrs. Baires packets, all other fish, tea, hot cocoa, apple juice. Dislikes coffee, mashed potato with gravy. Usual diet at home [place]: regular, SANJAY Skin Integrity/Comment: Perico [place]. Bruises, discolor extremities. Current %PO Good (75-100%) Estimated Nutritional Goals BEE in Kcals: Using Current wt Calories/Kcals/Kg CBW 162.8lb/74kg Kcals Calculated 1850-2220kcal (25-30kcal/kg) Protein: Using Current wt Protein Calculated 74g (1g/kg) Fluid: ml 1850-2220ml (1ml/kcal) Nutritional Problem 1. Problem Problem No nutritional problem at this time. Intervention/Recommendation Comments 1. Continue with current diet order. Avg PO intake is adequate. Pt's food preferences noted, FNS notified. 2. Pt report food allergies to shellfish only, FNS notified, documented under diet order. Expected Outcomes/Goals Expected Outcomes/Goals 1. PO intake continue to meet at least 75% of estimated nutritinoal needs.
--- NOTE | 2017-05-25 07:11 | Progress Notes ---
DATE: 05/25/2017 SUBJECTIVE: Chart reviewed and the patient interviewed. Also, discussed the patient's condition with the staff and reviewed records and labs. The patient is still delusional and paranoid and the patient is talking about her roommate that she has been bothering her. Her roommate has been quiet. According to staff, she did not bother her. The patient also is still in angry and in irritable mood, and she still needs lots of redirections. She is hyperverbal. She is extremely paranoid and agitated. Otherwise, the patient is compliant with taking her medications with no side effects of medications. ASSESSMENT: The patient is still psychotic and is still confused. TREATMENT PLAN: We will continue monitoring her behavior and her condition closely. Also, continue to work on adjusting psychotropic medications and her ineffective coping. [facility]# [id number]
[2017-05-25] MEDS: Menthol/Zinc Oxide Oint 113gm Tube TP SCH ×2 (08:18→17:05)
--- NOTE | 2017-05-25 13:39 | Internal Medicine Prog Note ---
Internal Medicine Subjective - Subjective Service Date: 05/25/17 Patient seen and examined:: with staff Patient is:: awake, robyn chair, talking Patient Complaints of:: itching (SHE HAS ITCHING AROUND RECTAL AREA.) Per staff patient has:: no adverse event Internal Medicine Objective - Results Result Diagrams: 05/11/17 16:25 05/11/17 16:25 Recent Labs: Laboratory Last Values WBC 8.2 Th/cmm (4.8-10.8) 05/11/17 16:25 RBC 3.74 Mil/cmm (3.80-5.20) L 05/11/17 16:25 Hgb 11.7 gm/dL (12-16) L 05/11/17 16:25 Hct 34.0 % (41.0-60) L 05/11/17 16:25 MCV 91.0 fl (81-100) 05/11/17 16:25 MCH 31.2 pg (27.0-31.0) H 05/11/17 16:25 MCHC Differential 34.3 pg (28.0-36.0) 05/11/17 16:25 RDW 13.9 % (11.5-20.0) 05/11/17 16:25 Plt Count 178 Th/cmm (150-400) 05/11/17 16:25 MPV 7.8 fl 05/11/17 16:25 Neutrophils (Manual) 47 % (40-80) 05/11/17 16:25 Lymphocytes 41 % (20-50) 05/11/17 16:25 Monocytes 11 % (2-10) H 05/11/17 16:25 Basophils 1 % (0-3) 05/11/17 16:25 Platelet Estimate ADEQUATE (NORMAL) 05/11/17 16:25 PT 9.7 SECONDS (9.5-11.5) 05/11/17 16:25 INR 0.93 (0.5-1.4) 05/11/17 16:25 PTT (Actin FS) 25.4 SECONDS (26.0-38.0) L 05/11/17 16:25 Sodium 138 mEq/L (136-145) 05/11/17 16:25 Potassium 4.4 mEq/L (3.5-5.1) 05/11/17 16:25 Chloride 106 mEq/L (98-107) 05/11/17 16:25 Carbon Dioxide 22.9 mEq/L (21.0-31.0) 05/11/17 16:25 Anion Gap 13.5 (7.0-16.0) 05/11/17 16:25 BUN 28 mg/dL (7-25) H 05/11/17 16:25 Creatinine 1.1 mg/dL (0.6-1.2) 05/11/17 16:25 Est GFR ( Amer) TNP 05/11/17 16:25 Est GFR (Non-Af Amer) TNP 05/11/17 16:25 BUN/Creatinine Ratio 25.5 05/11/17 16:25 Glucose 102 mg/dL (70-105) 05/11/17 16:25 Calcium 9.9 mg/dL (8.6-10.3) 05/11/17 16:25 Total Bilirubin 0.5 mg/dL (0.3-1.0) 05/11/17 16:25 AST 21 U/L (13-39) 05/11/17 16:25 ALT 13 U/L (7-52) 05/11/17 16:25 Alkaline Phosphatase 72 U/L (34-104) 05/11/17 16:25 Troponin I 0.02 ng/mL (0.01-0.05) 05/11/17 16:25 B-Natriuretic Peptide 68.8 pg/mL (5.0-100.0) 05/11/17 16:25 Total Protein 8.2 gm/dL (6.0-8.3) 05/11/17 16:25 Albumin 4.5 gm/dL (3.7-5.3) 05/11/17 16:25 Globulin 3.7 gm/dL 05/11/17 16:25 Albumin/Globulin Ratio 1.2 (1.0-1.8) 05/11/17 16:25 Triglycerides 85 mg/dL (<150) 05/11/17 16:25 Cholesterol 216 mg/dL (<200) H 05/11/17 16:25 LDL Cholesterol Direct 139 mg/dL (75-193) 05/11/17 16:25 HDL Cholesterol 71 mg/dL (23-92) 05/11/17 16:25 TSH 2.96 uIU/ml (0.34-5.60) 05/11/17 16:25 Urine Source CLEAN C 05/14/17 16:10 Urine Color STRAW 05/14/17 16:10 Urine Clarity CLEAR (CLEAR) 05/14/17 16:10 Urine pH 6.0 (4.6 - 8.0) 05/14/17 16:10 Ur Specific [place] <= 1.005 (1.005-1.030) 05/14/17 16:10 Urine Protein NEGATIVE mg/dL (NEGATIVE) 05/14/17 16:10 Urine Glucose (UA) NEGATIVE mg/dL (NEGATIVE) 05/14/17 16:10 Urine Ketones NEGATIVE mg/dL (NEGATIVE) 05/14/17 16:10 Urine Blood TRACE (NEGATIVE) 05/14/17 16:10 Urine Nitrate NEGATIVE (NEGATIVE) 05/14/17 16:10 Urine Bilirubin NEGATIVE (NEGATIVE) 05/14/17 16:10 Urine Urobilinogen 0.2 E.U./dL (0.2 - 1.0) 05/14/17 16:10 Ur Leukocyte Esterase NEGATIVE (NEGATIVE) 05/14/17 16:10 Urine RBC 0-2 /hpf (0-5) 05/14/17 16:10 Urine WBC 0-2 /hpf (0-5) 05/14/17 16:10 Ur Epithelial Cells NONE SEEN /lpf (FEW) 05/14/17 16:10 Urine Bacteria NONE SEEN /hpf (NONE SEEN) 05/14/17 16:10 RPR NONREACTIVE (NONREACTIVE) 05/11/17 16:25 - Physical Exam Vitals and I&O: Vital Signs Temp 97.2 F 05/25/17 06:39 Pulse 61 05/25/17 08:16 Resp 18 05/25/17 06:39 BP 136/60 05/25/17 08:16 Pulse Ox 99 05/25/17 06:39 Intake & Output 05/24/17 05/25/17 05/25/17 18:59 06:59 18:59 Intake Total 2400 120 Balance 2400 120 Intake: Oral 2400 120 Other: # Voids 5 3 # Bowel Movements 3 Stool Characteristics Soft Soft Brown Formed Active Medications: Current Medications Acetaminophen (Tylenol) 650 mg PO Q6H PRN PRN Reason: Mild Pain/Headache/T above 101 Stop: 07/10/17 21:29 Last Admin: 10/13/17 09:38 Dose: 650 mg Amlodipine Besylate (Norvasc) 2.5 mg PO DAILY [facility] Stop: 07/12/17 08:59 Last Admin: 05/25/17 08:16 Dose: 2.5 mg Aripiprazole (Abilify) 20 mg PO DAILY [facility] PRN Reason: Protocol Stop: 07/17/17 06:23 Last Admin: 05/25/17 08:16 Dose: 20 mg Calamine/Phenol (Calmoseptine) 1 appl TP BID [facility] Stop: 07/20/17 16:59 Last Admin: 05/25/17 08:18 Dose: 1 appl Donepezil HCl (Aricept) 10 mg PO HS [facility] Stop: 07/23/17 06:11 Last Admin: 05/24/17 20:42 Dose: 10 mg Gabapentin (Neurontin) 100 mg PO HS [facility] Stop: 07/11/17 20:59 Last Admin: 05/24/17 20:42 Dose: 100 mg Lorazepam (Ativan) 1 mg PO Q6H PRN; Protocol PRN Reason: Anxiety/Agitation Stop: 07/10/17 21:29 Magnesium Hydroxide (Milk Of Magnesia) 30 ml PO HS PRN PRN Reason: Constipation Stop: 07/10/17 21:29 Magnesium Oxide (Mag-Oxide) 400 mg PO BID [facility] Stop: 07/11/17 16:59 Last Admin: 05/25/17 08:18 Dose: 400 mg Zolpidem Tartrate (Ambien) 5 mg PO HS PRN PRN Reason: Insomnia Stop: 07/10/17 21:29 Last Admin: 05/23/17 21:16 Dose: 5 mg General: demented HEENT: NC/AT, PERRLA, EOMI, anicteric sclerae, throat clear Neck: Supple, No JVD, No thyromegaly, +2 carotid pulse wo bruit, No LAD Lungs: CTAB Cardiovascular: RRR, Normal S1, Normal S2, without murmur Abdomen: soft, non-tender, tender, thin Extremities: clear Neurological: no change Internal Medicine Assmt/Plan - Assessment Assessment: 1.HTN 2.DVT OF LOWER EXTRE. 3.PERIPHERAL NEUROPATHY OF LOWER EXTRE. 4.DEMENTIA. - Plan Plan: CONTINUE ON CURRENT MEDICATION AND DIET. Nutritional Asmnt/Malnutr-PDOC - Dietary Evaluation Malnutrition Findings (Please click <Entered> for more info): Nutritional Asmnt/Malnutrition Start: 05/15/17 17: 50 Text: Status: Complete Freq: Document 05/15/17 17:50 SORAYAARMANI (Rec: 05/15/17 18:08 GSARMANI [id number]) Nutritional Asmnt/Malnutrition Patient General Information Nutritional Screening Moderate Risk Screening Diagnosis Dementia with behavioral disturbances, anxiety Pertinent Medical Hx/Surgical Hx Dementia, HTN, GERD, neuropathy, DVT Subjective Information 81 year old female from SNF. No known allergies on EMR, pt report allergies to shellfish. Pt was very talkaive, goes off topic, slight forgetfulness noted, however able to provide basic nutrition hx. 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 Pt stated no allergies to anything else , likes salmon, tuna... etc. FNS notified and food preferences noted. No severe muscle fat wasting. No difficulties chewing/ swallowing. Pt report UBW 190lb many years ago. Pt report "wonderful appetite" and food has been "excellent." Pt also appeared health concious, requested for additional Mrs. Baires packets and was able to explain purpose/benefit. Avg PO intake 100% of meals since adm, meeting nutritinoal needs. Current Diet Order/ Nutrition Support Regular, SANJAY Pertinent Medications LASHAY Beltran, Mag-Oxide Pertinent Labs Reviewed. 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 Pt with preference for extra Mrs. Baires packets, all other fish, tea, hot cocoa, apple juice. Dislikes coffee, mashed potato with gravy. Usual diet at home [place]: regular, SANJAY Skin Integrity/Comment: Perico Herbert. Bruises, discolor extremities. Current %PO Good (75-100%) Estimated Nutritional Goals BEE in Kcals: Using Current wt Calories/Kcals/Kg CBW 162.8lb/74kg Kcals Calculated 1850-2220kcal (25-30kcal/kg) Protein: Using Current wt Protein Calculated 74g (1g/kg) Fluid: ml 1850-2220ml (1ml/kcal) Nutritional Problem 1. Problem Problem No nutritional problem at this time. Intervention/Recommendation Comments 1. Continue with current diet order. Avg PO intake is adequate. Pt's food preferences noted, FNS notified. 2. Pt report food allergies to shellfish only, FNS notified, documented under diet order. Expected Outcomes/Goals Expected Outcomes/Goals 1. PO intake continue to meet at least 75% of estimated nutritinoal needs.
[2017-05-26] MEDS: Menthol/Zinc Oxide Oint 113gm Tube TP SCH (08:38)
--- NOTE | 2017-05-26 23:33 | Progress Notes ---
DATE: SUBJECTIVE: The patient was seen and evaluated. The patient's chart reviewed. Dr. Reid Covering for Dr. Pollock. Overnight, nursing staff reported that the patient continues very disorganized, disheveled. Today on [id number]-[id number] evaluation, the patient observed to be responding to internal stimuli, also observed to be easily disorganized and irrelevant, difficult to engage in a conversation. MENTAL STATUS EXAMINATION: Still disorganized, disheveled, poor insight, judgment and impulse control. ASSESSMENT AND PLAN: The patient is an 81-year-old female who continues to be very disorganized, psychotic, unable to formulate a safe plan outside the structured environment. We will continue monitoring and evaluating and continue with primary psychiatrist's treatment plan and goals, which includes Abilify 20 mg a day, Aricept 10 mg a day, gabapentin and lorazepam as needed. With the patient's recent adjustments of medications, continue monitoring and evaluating until she reaching steady state. JOB# [id number]
[2017-05-27] MEDS: Menthol/Zinc Oxide Oint 113gm Tube TP SCH ×2 (08:40→16:15)
--- NOTE | 2017-05-27 19:45 | Progress Notes ---
DATE: 05/27/2017 SUBJECTIVE: The patient was seen and evaluated. The patient's chart was reviewed. OBJECTIVE: VITAL SIGNS: Reviewed, stable. Overnight nursing staff reported the patient observed to be easily very paranoid, suspicious, and irritable. Today on [id number] evaluation, the patient continues to perseverate about an unknown person that she "is going to attend the ," and she is going to kill "a person who she does not know." MENTAL STATUS EXAMINATION: Still very paranoid and delusional, still endorsing about killing a person that she cannot even the name, and poor insight, judgment, and impulse control. ASSESSMENT AND PLAN: The patient is an 81-year-old female who presents still very psychotic, delusional by attending the and hurting someone. Due to the patient's still active psychotic symptoms, she is unable to formulate a safe plan outside the structured environment. Recent Abilify has been included to be at 20 mg to target the patient's severe psychotic symptoms. We will continue monitoring and evaluating with treatment from the primary psychiatrist's treatment plan as her medications to target the patient's severe paranoia. JOB# [id number]
--- NOTE | 2017-05-27 20:39 | General Progress Note ---
Subjective - Review of Systems Service Date: 05/27/17 Subjective: resting comfortably no distress c/o diarrhea Objective - Results Result Diagrams: 05/11/17 16:25 05/11/17 16:25 Recent Labs: Laboratory Last Values WBC 8.2 Th/cmm (4.8-10.8) 05/11/17 16:25 RBC 3.74 Mil/cmm (3.80-5.20) L 05/11/17 16:25 Hgb 11.7 gm/dL (12-16) L 05/11/17 16:25 Hct 34.0 % (41.0-60) L 05/11/17 16:25 MCV 91.0 fl (81-100) 05/11/17 16:25 MCH 31.2 pg (27.0-31.0) H 05/11/17 16:25 MCHC Differential 34.3 pg (28.0-36.0) 05/11/17 16:25 RDW 13.9 % (11.5-20.0) 05/11/17 16:25 Plt Count 178 Th/cmm (150-400) 05/11/17 16:25 MPV 7.8 fl 05/11/17 16:25 Neutrophils (Manual) 47 % (40-80) 05/11/17 16:25 Lymphocytes 41 % (20-50) 05/11/17 16:25 Monocytes 11 % (2-10) H 05/11/17 16:25 Basophils 1 % (0-3) 05/11/17 16:25 Platelet Estimate ADEQUATE (NORMAL) 05/11/17 16:25 PT 9.7 SECONDS (9.5-11.5) 05/11/17 16:25 INR 0.93 (0.5-1.4) 05/11/17 16:25 PTT (Actin FS) 25.4 SECONDS (26.0-38.0) L 05/11/17 16:25 Sodium 138 mEq/L (136-145) 05/11/17 16:25 Potassium 4.4 mEq/L (3.5-5.1) 05/11/17 16:25 Chloride 106 mEq/L (98-107) 05/11/17 16:25 Carbon Dioxide 22.9 mEq/L (21.0-31.0) 05/11/17 16:25 Anion Gap 13.5 (7.0-16.0) 05/11/17 16:25 BUN 28 mg/dL (7-25) H 05/11/17 16:25 Creatinine 1.1 mg/dL (0.6-1.2) 05/11/17 16:25 Est GFR ( Amer) TNP 05/11/17 16:25 Est GFR (Non-Af Amer) TNP 05/11/17 16:25 BUN/Creatinine Ratio 25.5 05/11/17 16:25 Glucose 102 mg/dL (70-105) 05/11/17 16:25 Calcium 9.9 mg/dL (8.6-10.3) 05/11/17 16:25 Total Bilirubin 0.5 mg/dL (0.3-1.0) 05/11/17 16:25 AST 21 U/L (13-39) 05/11/17 16:25 ALT 13 U/L (7-52) 05/11/17 16:25 Alkaline Phosphatase 72 U/L (34-104) 05/11/17 16:25 Troponin I 0.02 ng/mL (0.01-0.05) 05/11/17 16:25 B-Natriuretic Peptide 68.8 pg/mL (5.0-100.0) 05/11/17 16:25 Total Protein 8.2 gm/dL (6.0-8.3) 05/11/17 16:25 Albumin 4.5 gm/dL (3.7-5.3) 05/11/17 16:25 Globulin 3.7 gm/dL 05/11/17 16:25 Albumin/Globulin Ratio 1.2 (1.0-1.8) 05/11/17 16:25 Triglycerides 85 mg/dL (<150) 05/11/17 16:25 Cholesterol 216 mg/dL (<200) H 05/11/17 16:25 LDL Cholesterol Direct 139 mg/dL (75-193) 05/11/17 16:25 HDL Cholesterol 71 mg/dL (23-92) 05/11/17 16:25 TSH 2.96 uIU/ml (0.34-5.60) 05/11/17 16:25 Urine Source CLEAN C 05/14/17 16:10 Urine Color STRAW 05/14/17 16:10 Urine Clarity CLEAR (CLEAR) 05/14/17 16:10 Urine pH 6.0 (4.6 - 8.0) 05/14/17 16:10 Ur Specific [place] <= 1.005 (1.005-1.030) 05/14/17 16:10 Urine Protein NEGATIVE mg/dL (NEGATIVE) 05/14/17 16:10 Urine Glucose (UA) NEGATIVE mg/dL (NEGATIVE) 05/14/17 16:10 Urine Ketones NEGATIVE mg/dL (NEGATIVE) 05/14/17 16:10 Urine Blood TRACE (NEGATIVE) 05/14/17 16:10 Urine Nitrate NEGATIVE (NEGATIVE) 05/14/17 16:10 Urine Bilirubin NEGATIVE (NEGATIVE) 05/14/17 16:10 Urine Urobilinogen 0.2 E.U./dL (0.2 - 1.0) 05/14/17 16:10 Ur Leukocyte Esterase NEGATIVE (NEGATIVE) 05/14/17 16:10 Urine RBC 0-2 /hpf (0-5) 05/14/17 16:10 Urine WBC 0-2 /hpf (0-5) 05/14/17 16:10 Ur Epithelial Cells NONE SEEN /lpf (FEW) 05/14/17 16:10 Urine Bacteria NONE SEEN /hpf (NONE SEEN) 05/14/17 16:10 RPR NONREACTIVE (NONREACTIVE) 05/11/17 16:25 - Physical Exam Vitals and I&O: Vital Signs Temp 98.2 F 05/27/17 20:22 Pulse 73 05/27/17 20:22 Resp 20 05/27/17 20:22 BP 116/55 05/27/17 20:22 Pulse Ox 95 05/27/17 20:22 Intake & Output 05/27/17 05/27/17 05/28/17 06:59 18:59 06:59 Intake Total 360 1200 240 Output Total 1 Balance 360 1200 239 Intake: Oral 360 1200 240 Output: Stool 1 Other: # Voids 1 4 1 # Bowel Movements 2 Active Medications: Current Medications Acetaminophen (Tylenol) 650 mg PO Q6H PRN PRN Reason: Mild Pain/Headache/T above 101 Stop: 07/10/17 21:29 Last Admin: 05/27/17 16:14 Dose: 650 mg Amlodipine Besylate (Norvasc) 2.5 mg PO DAILY [facility] Stop: 07/12/17 08:59 Last Admin: 05/27/17 08:39 Dose: 2.5 mg Aripiprazole (Abilify) 20 mg PO DAILY [facility] PRN Reason: Protocol Stop: 07/17/17 06:23 Last Admin: 05/27/17 08:39 Dose: 20 mg Calamine/Phenol (Calmoseptine) 1 appl TP BID [facility] Stop: 07/20/17 16:59 Last Admin: 05/27/17 16:15 Dose: 1 appl Donepezil HCl (Aricept) 10 mg PO HS [facility] Stop: 07/23/17 06:11 Last Admin: 05/26/17 21:38 Dose: 10 mg Gabapentin (Neurontin) 100 mg PO HS [facility] Stop: 07/11/17 20:59 Last Admin: 05/26/17 21:38 Dose: 100 mg Loperamide HCl (Imodium) 2 mg PO Q6HR PRN PRN Reason: Diarrhea Stop: 07/26/17 20:33 Lorazepam (Ativan) 1 mg PO Q6H PRN; Protocol PRN Reason: Anxiety/Agitation Stop: 07/10/17 21:29 Last Admin: 05/27/17 16:14 Dose: 1 mg Magnesium Hydroxide (Milk Of Magnesia) 30 ml PO HS PRN PRN Reason: Constipation Stop: 07/10/17 21:29 Magnesium Oxide (Mag-Oxide) 400 mg PO BID [facility] Stop: 07/11/17 16:59 Last Admin: 05/27/17 16:14 Dose: 400 mg Zolpidem Tartrate (Ambien) 5 mg PO HS PRN PRN Reason: Insomnia Stop: 07/10/17 21:29 Last Admin: 05/26/17 21:38 Dose: 5 mg General: Alert, Oriented x3 HEENT: Atraumatic, PERRLA, EOMI Neck: Supple, JVD Cardiovascular: Regular rate, Normal S1, Normal S2 Lungs: Clear to auscultation Abdomen: Bowel sounds, Soft Neurological: Normal gait Psych/Mental Status: Mood NL Assessment/Plan - Assessment Assessment: schizophrenia dementia htn gerd diarrhea - Plan Plan: cont current treatment imodium prn Nutritional Asmnt/Malnutr-PDOC - Dietary Evaluation Malnutrition Findings (Please click <Entered> for more info): Nutritional Asmnt/Malnutrition Start: 05/15/17 17: 50 Text: Status: Complete Freq: Document 05/15/17 17:50 GSUN (Rec: 05/15/17 18:08 GSUN [email or web address]) Nutritional Asmnt/Malnutrition Patient General Information Nutritional Screening Moderate Risk Screening Diagnosis Dementia with behavioral disturbances, anxiety Pertinent Medical Hx/Surgical Hx Dementia, HTN, GERD, neuropathy, DVT Subjective Information 81 year old female from SNF. No known allergies on EMR, pt report allergies to shellfish. Pt was very talkaive, goes off topic, slight forgetfulness noted, however able to provide basic nutrition hx. 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 Pt stated no allergies to anything else , likes salmon, tuna... etc. FNS notified and food preferences noted. No severe muscle fat wasting. No difficulties chewing/ swallowing. Pt report UBW 190lb many years ago. Pt report "wonderful appetite" and food has been "excellent." Pt also appeared health concious, requested for additional Mrs. Baires packets and was able to explain purpose/benefit. Avg PO intake 100% of meals since adm, meeting nutritinoal needs. Current Diet Order/ Nutrition Support Regular, SANJAY Pertinent Medications Culturelle, MOM, Mag-Oxide Pertinent Labs Reviewed. 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 Pt with preference for extra Mrs. Baires packets, all other fish, tea, hot cocoa, apple juice. Dislikes coffee, mashed potato with gravy. Usual diet at home [place]: regular, SANJAY Skin Integrity/Comment: Perico 17. Bruises, discolor extremities. Current %PO Good (75-100%) Estimated Nutritional Goals BEE in Kcals: Using Current wt Calories/Kcals/Kg CBW 162.8lb/74kg Kcals Calculated 1850-2220kcal (25-30kcal/kg) Protein: Using Current wt Protein Calculated 74g (1g/kg) Fluid: ml 1850-2220ml (1ml/kcal) Nutritional Problem 1. Problem Problem No nutritional problem at this time. Intervention/Recommendation Comments 1. Continue with current diet order. Avg PO intake is adequate. Pt's food preferences noted, FNS notified. 2. Pt report food allergies to shellfish only, FNS notified, documented under diet order. Expected Outcomes/Goals Expected Outcomes/Goals 1. PO intake continue to meet at least 75% of estimated nutritinoal needs.
[2017-05-28 07:07] LABS: % BASOPHILS 0.5 % (0.0-2.0); % EOSINOPHILS 2.4 % (0.0-5.0); % LYMPHOCYTES 57.4 % (20.0-50.0); % MONOCYTES 12.2 % (2.0-10.0); % NEUTROPHILS 27.5 % (40.0-80.0); HEMATOCRIT 36.2 % (41.0-60); HEMOGLOBIN 12.1 gm/dL (12-16); MEAN CORPUSCULAR HEMOGLOBIN 30.5 pg (27.0-31.0); MEAN CORPUSCULAR HGB CONC 33.5 pg (28.0-36.0); MEAN PLATELET VOLUME 8.1 fl; NEUTROPHILE ABSOLUTE 1.4 Th/cmm (1.8-8.0); PLATELET COUNT 173 Th/cmm (150-400); RED BLOOD COUNT 3.98 Mil/cmm (3.80-5.20); RED CELL DISTRIBUTION WIDTH 14.6 % (11.5-20.0)
[2017-05-28 07:11] LABS: WHITE BLOOD COUNT 5.2 Th/cmm (4.8-10.8)
[2017-05-28 07:25] LABS: ALB/GLOB RATIO 1.2 (1.0-1.8); ALKALINE PHOSPHATASE 68 U/L (34-104); ANION GAP 8.2 (7.0-16.0); BILIRUBIN,TOTAL 0.4 mg/dL (0.3-1.0); BUN - UREA NITROGEN 17 mg/dL (7-25); BUN/CREATININE RATIO 24.3; CALCIUM SERUM 9.6 mg/dL (8.6-10.3); CARBON DIOXIDE 27.6 mEq/L (21.0-31.0); CHLORIDE 103 mEq/L (98-107); CREATININE - SERUM 0.7 mg/dL (0.6-1.2); GLUCOSE 92 mg/dL (70-105); POTASSIUM SERUM 3.8 mEq/L (3.5-5.1); SGOT 21 U/L (13-39); SGPT/ALT 17 U/L (7-52); SODIUM SERUM 135 mEq/L (136-145)
[2017-05-28] MEDS: Menthol/Zinc Oxide Oint 113gm Tube TP SCH (08:51)
--- NOTE | 2017-05-28 12:40 | Discharge Summary ---
DATE OF DISCHARGE: 05/28/2017 FINAL DIAGNOSIS AND PRIMARY DIAGNOSIS: Bipolar disorder, severe, with psychotic features. REASON FOR HOSPITALIZATION: The patient was admitted to the hospital from halfway because of increased agitation and irritability and confusion, and difficulty following directions. HOSPITAL COURSE: The patient continued to be agitated and in irritable mood. The patient also was manicky and hyperverbal. The patient also was having severe mood swings and she was angry and needed lot of redirections. 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 Gradually, the patient's affect was brighter. The patient was less agitated and less irritable. She also was interacting more with peers and with others and the patient was discharged from the hospital. Physical exam of the patient showed no major medical problems and the patient had no major medical problems while in the hospital. Also, blood workup was basically within normal. AFTER-DISCHARGE PLANS: [facility]patient treatment and [facility]. EXPECTED OUTCOME AFTER DISCHARGE: Fair if the patient continues to take her psychotropic medications and follow up with discharge plans. [facility]# [id number]
== END 2017-05-28 14:00 | disposition home or self-care (01) | DRG 885 ==
LOC: ER 16:02 → GERO 17:00
PROVIDERS: ADMIT Psychiatry & Neurology Psychiatry; ATTEND Psychiatry & Neurology Psychiatry
DX: F31.9 Bipolar disorder, unspecified (principal); F03.91 Unspecified dementia, unspecified severity, with behavioral disturbance; N18.6 End stage renal disease; I12.0 Hypertensive chronic kidney disease with stage 5 chronic kidney disease or end stage renal disease; E11.22 Type 2 diabetes mellitus with diabetic chronic kidney disease; F41.9 Anxiety disorder, unspecified; K21.9 Gastro-esophageal reflux disease without esophagitis; M19.90 Unspecified osteoarthritis, unspecified site; F20.9 Schizophrenia, unspecified; D64.9 Anemia, unspecified; E11.42 Type 2 diabetes mellitus with diabetic polyneuropathy; L29.9 Pruritus, unspecified; R19.7 Diarrhea, unspecified; F29 Unspecified psychosis not due to a substance or known physiological condition; Z86.718 Personal history of other venous thrombosis and embolism
CPT/HCPCS: 36415-UA; 71010-TC; 80053-TC; 80061-TC; 81001-TC; 83880-TC; 84443-TC; 84484-TC; 85007-TC; 85027-TC; 85610-TC; 85730-TC; 86592-TC; 90899; 93005; G0410; J1630; J2060; Z7610